=== PATIENT | female | born 1940 | race African-American/Black ===

== ENCOUNTER 2017-07-10 14:10 | Emergency (ER) | payer MEDICARE, MEDICAID ==
[~2017-07-10] VITALS: Ht 157.5 cm; Wt 68.0 kg
[~2017-07-10 14:10] MED LIST: ALEN70TA48 PO; DIPH25CA83 PO; FLUT1DIS3 IH; GABA-531 PO; MISO200T4 PO; OMEP20CA10 PO; PROC5TAB PO; ZOLP5TAB8 PO
[2017-07-10 14:20] VITALS: BP 113/61
== END 2017-07-10 21:35 | disposition left against medical advice (07) ==
LOC: ER 17:37
DX: R07.89 Other chest pain (principal); R05 Cough; Z53.21 Procedure and treatment not carried out due to patient leaving prior to being seen by health care provider
CPT/HCPCS: 93005

== ENCOUNTER 2018-08-11 12:38 | Inpatient (IN) | payer MEDICARE, MEDICAID ==
[~2018-08-11] VITALS: Ht 157.5 cm; Wt 72.1 kg
[~2018-08-11 12:38] MED LIST changes: -PROC5TAB PO; +PROC5TAB12 PO
[2018-08-11] MEDS ORDERED: SODIUM CHLORIDE 0.9% 1,000 ML IV ONE (13:07)
[2018-08-11 13:22] LABS: BASOPHILS % 0.6 % (0.0-2.0); HEMATOCRIT. 26.7 % (36.0-48.0); HEMOGLOBIN. 9.1 g/dL (12.0-16.0); LYMPHOCYTES % 14.9 % (20.0-50.0); MEAN CORPUSCULAR HEMOGLOBIN 31.1 pg (28.0-32.0); MEAN CORPUSCULAR VOLUME 90.9 fL (81.0-99.0); MEAN PLATELET VOLUME 6.7 fl (7.4-10.4); NEUTROPHILS % 74.5 % (40.0-76.0); PLATELET 310 x1000/uL (130-400); RED BLOOD CELL COUNT 2.93 mill/uL (4.2-5.4); RED CELL DISTRIBUTION WIDTH 14.1 % (11.6-14.6)
[2018-08-11 13:27] LABS: CHLORIDE 102 mEq/L (98-107)
[2018-08-11 13:31] LABS: PROTHROMBIN TIME 10.7 sec (9.6-11.0)
[2018-08-11] MEDS ORDERED: CEFTRIAXONE 1 G PREMIX 50 ML IV ONE (18:15)
[2018-08-11] MEDS ORDERED: AZITHROMYCIN 500 MG in DEXT 5% WATER 250 ML IV ONE (18:15)
[2018-08-11] MEDS ORDERED: MORPHINE SULFATE 4 MG/ML CPJ (NOT FOR IM USE) IV PRN ×2 (18:45→23:00)
[2018-08-11 21:40] VITALS: BP 135/82
[2018-08-11] MEDS ORDERED: ACETAMINOPHEN 650MG/20.3ML UDC PO PRN (23:00)
[2018-08-11] MEDS: HYDROCODONE/ACETAMINOPHEN 5/325MG TABLET PO PRN (23:42)
[2018-08-12] VITALS: BP 132/57
[2018-08-12] MEDS ORDERED: LEVOFLOXACIN 500MG PREMIX 100 ML IV SCH ×2
[2018-08-12] MEDS ORDERED: CHLORHEXIDINE GLUCONATE 4% EXTERNAL USE TOP NR (01:00)
[2018-08-12 04:00] VITALS: BP 120/50
[2018-08-12] MEDS: IPRATROPIUM/ALBUTEROL 0.5-3(2.5)MG/3ML NEB HHN SCH ×2 (04:59→20:27)
[2018-08-12] MEDS: HYDROCODONE/ACETAMINOPHEN 5/325MG TABLET PO PRN (05:03)
[2018-08-12] MEDS ORDERED: ONDANSETRON HCL 4MG/2ML INJ IV PRN ×2 (05:15→15:30)
[2018-08-12 06:20] LABS: BASOPHILS % 0.3 % (0.0-2.0); EOSINOPHILS % 0.1 % (0.0-5.0); HEMATOCRIT. 24.2 % (36.0-48.0); HEMOGLOBIN. 8.1 g/dL (12.0-16.0); LYMPHOCYTES % 8.7 % (20.0-50.0); MEAN PLATELET VOLUME 6.8 fl (7.4-10.4); MONOCYTES % 8.1 % (2.0-8.0); NEUTROPHILS % 82.8 % (40.0-76.0); PLATELET 228 x1000/uL (130-400); RED BLOOD CELL COUNT 2.63 mill/uL (4.2-5.4); RED CELL DISTRIBUTION WIDTH 14.2 % (11.6-14.6)
[2018-08-12 06:40] LABS: CHLORIDE 103 mEq/L (98-107)
[2018-08-12] MEDS ORDERED: MORPHINE SULFATE/PF 1MG/ML 10ML AMP ONE (07:11)
[2018-08-12] MEDS ORDERED: SKIN ADHESIVE 0.7 GM EA TOP ONE (07:12)
[2018-08-12] MEDS ORDERED: BACITRACIN 15GM TUBE TOP ONE (07:12)
[2018-08-12] MEDS ORDERED: EPINEPHRINE 1:1000 1 MG/ML AMP ONE (07:12)
[2018-08-12] MEDS ORDERED: GENTAMICIN SULF 40MG/ML 2ML VIAL ONE (07:12)
[2018-08-12] MEDS ORDERED: NORMAL SALINE 0.9% 10 ML SYR ONE ×2 (07:12→13:30)
[2018-08-12] MEDS ORDERED: BACITRACIN 50,000 UNITS/VIAL ONE ×2 (07:13→13:31)
[2018-08-12] MEDS ORDERED: BUPIVACAINE HCL/EPINEPHRINE 0.5%/0.0005 30ML ONE (07:13)
[2018-08-12] MEDS ORDERED: TRANEXAMIC ACID 1,000 MG/10 ML IV STA (07:53)
[2018-08-12] MEDS ORDERED: ROCURONIUM BROMIDE 10MG/ML VIAL 5ML IV ONE (08:09)
[2018-08-12] MEDS ORDERED: EPHEDRINE SULFATE 50MG/ML VIAL ONE (08:10)
[2018-08-12] MEDS ORDERED: PHENYLEPHRINE HCL 10 MG/ML 1ML (IV VIAL) IV ONE ×2 (08:11→13:00)
[2018-08-12] MEDS ORDERED: SODIUM CHLORIDE 0.9% 10ML VIAL ONE ×2 (08:11→08:58)
[2018-08-12] MEDS ORDERED: FENTANYL CITRATE/PF 50MCG/ML 2ML VIAL ONE (08:15)
[2018-08-12] MEDS ORDERED: TRANEXAMIC ACID 1,000 MG in SODIUM CHLORIDE 0.9% 100 ML IV NR (08:15)
[2018-08-12] MEDS ORDERED: MIDAZOLAM HCL 2 MG/2 ML VIAL ONE (08:15)
[2018-08-12] MEDS ORDERED: DEXAMETHASONE 4MG/ML 1ML VIAL ONE (09:09)
[2018-08-12] MEDS ORDERED: CEFAZOLIN SODIUM 1000MG/VIAL ONE (09:29)
[2018-08-12] MEDS ORDERED: VANCOMYCIN HCL 500 MG/VIAL ONE ×2 (11:17→13:07)
[2018-08-12] MEDS ORDERED: ONDANSETRON HCL 4MG/2ML INJ ONE (15:07)
[2018-08-12] MEDS ORDERED: MAGNESIUM HYDROXIDE 400MG/5ML 30ML UDC PO PRN (15:30)
[2018-08-12] MEDS ORDERED: ACETAMINOPHEN 325MG TABLET PO PRN (15:30)
[2018-08-12] MEDS ORDERED: MORPHINE PCA 50MG/50ML IV PRN (16:05)
[2018-08-12] MEDS ORDERED: NALOXONE INJ IV PRN (16:06)
[2018-08-12] MEDS ORDERED: ONDANSETRON INJ IV PRN (16:06)
[2018-08-12] MEDS: DEXT 5%/0.45% NACL 1000ML 1,000 ML IV SCH (19:33)
[2018-08-12 20:00] VITALS: BP 136/66
[2018-08-12] MEDS: LEVOFLOXACIN 250MG PREMIX 50 ML IV SCH (20:33)
[2018-08-12] MEDS: CEFAZOLIN 2,000 MG in DEXT 5% WATER 100 ML IV SCH (23:48)
[2018-08-13] VITALS (7 sets, daily range): BP systolic 90–100; BP diastolic 45–69
[2018-08-13] MEDS: IPRATROPIUM/ALBUTEROL 0.5-3(2.5)MG/3ML NEB HHN SCH ×4 (01:22→21:18)
[2018-08-13] MEDS: DEXT 5%/0.45% NACL 1000ML 1,000 ML IV SCH (04:35)
[2018-08-13] MEDS ORDERED: SODIUM CHLORIDE 0.9% 500 ML IV ONE (07:15)
[2018-08-13 07:39] LABS: HEMATOCRIT. 29.7 % (36.0-48.0); HEMOGLOBIN. 10.3 g/dL (12.0-16.0); MEAN CORPUSCULAR HEMOGLOBIN 30.4 pg (28.0-32.0); MEAN CORPUSCULAR VOLUME 87.6 fL (81.0-99.0); MEAN PLATELET VOLUME 6.7 fl (7.4-10.4); PLATELET 182 x1000/uL (130-400); RED BLOOD CELL COUNT 3.39 mill/uL (4.2-5.4); RED CELL DISTRIBUTION WIDTH 15.9 % (11.6-14.6)
[2018-08-13 08:17] LABS: CHLORIDE 103 mEq/L (98-107)
[2018-08-13] MEDS: DOCUSATE SODIUM 100MG CAPSULE PO SCH ×2 (08:21→17:18)
[2018-08-13] MEDS: ENOXAPARIN 40MG/0.4ML SYR SUBCUT SCH (08:22)
[2018-08-13] MEDS: HYDROCODONE/ACETAMINOPHEN 5/325MG TABLET PO PRN ×3 (10:39→21:39)
[2018-08-13 11:44] LABS: PLATELET ESTIMATE NORMAL
[2018-08-13] MEDS: LEVOFLOXACIN 250MG PREMIX 50 ML IV SCH (20:20)
[2018-08-13] MEDS: CEFAZOLIN 2,000 MG in DEXT 5% WATER 100 ML IV SCH (20:32)
[2018-08-14] VITALS (7 sets, daily range): BP systolic 99–135; BP diastolic 39–65
[2018-08-14] MEDS: IPRATROPIUM/ALBUTEROL 0.5-3(2.5)MG/3ML NEB HHN SCH ×6 (01:25→19:54)
[2018-08-14] MEDS: HYDROCODONE/ACETAMINOPHEN 5/325MG TABLET PO PRN ×4 (03:21→22:02)
[2018-08-14] MEDS: DEXT 5%/0.45% NACL 1000ML 1,000 ML IV SCH ×2 (04:24→20:31)
[2018-08-14 07:24] LABS: BASOPHILS % 0.1 % (0.0-2.0); EOSINOPHILS % 0.2 % (0.0-5.0); HEMOGLOBIN. 9.6 g/dL (12.0-16.0); LYMPHOCYTES % 7.7 % (20.0-50.0); MEAN CORPUSCULAR HEMOGLOBIN 30.3 pg (28.0-32.0); MEAN CORPUSCULAR VOLUME 88.6 fL (81.0-99.0); MONOCYTES % 11.9 % (2.0-8.0); NEUTROPHILS % 80.1 % (40.0-76.0); PLATELET 194 x1000/uL (130-400); RED BLOOD CELL COUNT 3.16 mill/uL (4.2-5.4); RED CELL DISTRIBUTION WIDTH 16.3 % (11.6-14.6)
[2018-08-14 08:17] LABS: CHLORIDE 102 mEq/L (98-107)
[2018-08-14 08:23] LABS: PHOSPHORUS 1.7 mg/dL (2.5-4.9)
[2018-08-14] MEDS: ENOXAPARIN 40MG/0.4ML SYR SUBCUT SCH (09:28)
[2018-08-14] MEDS: DOCUSATE SODIUM 100MG CAPSULE PO SCH ×2 (09:28→18:25)
[2018-08-14] MEDS: LEVOFLOXACIN 250MG PREMIX 50 ML IV SCH (20:30)
[2018-08-15] VITALS: BP 115/57
[2018-08-15] MEDS: DIPHENHYDRAMINE INJ IV PRN ×3 (00:28→15:27)
[2018-08-15] MEDS: IPRATROPIUM/ALBUTEROL 0.5-3(2.5)MG/3ML NEB HHN SCH ×6 (00:46→20:58)
[2018-08-15 04:00] VITALS: BP 136/76
[2018-08-15] MEDS: HYDROCODONE/ACETAMINOPHEN 5/325MG TABLET PO PRN ×3 (04:04→16:50)
[2018-08-15 08:00] VITALS: BP 108/62
[2018-08-15] MEDS: DOCUSATE SODIUM 100MG CAPSULE PO SCH ×2 (08:19→17:06)
[2018-08-15] MEDS: ENOXAPARIN 40MG/0.4ML SYR SUBCUT SCH (08:20)
[2018-08-15 12:00] VITALS: BP 141/65
[2018-08-15 16:00] VITALS: BP 124/68
[2018-08-15] MEDS ORDERED: LACTULOSE 20G/30ML UDC PO SCH ×2 (16:15→17:00)
[2018-08-15] MEDS ORDERED: MAGNESIUM SULFATE 3 GM in DEXT 5% WATER 94 ML IV ONE (19:30)
[2018-08-15 20:08] VITALS: BP 139/68
[2018-08-15] MEDS ORDERED: POTASSIUM PHOS,M-BASIC-D-BASIC 10 MMOL in DEXT 5% WATER 246.6667 ML IV ONE (20:30)
[2018-08-15] MEDS ORDERED: POLYETHYLENE GLYCOL 3350 (17GM) 1 DOSE PACK PO SCH ×2 (21:00)
[2018-08-15] MEDS: LEVOFLOXACIN 250MG PREMIX 50 ML IV SCH (21:31)
== END 2018-08-15 22:12 | DRG 466 ==
LOC: ER 12:38 → 6EST 16:19 → EDBEDREQ 16:22 → EDBEDREQTM 16:22 → EDBEDREQSVC 19:52 → ENRESERV 19:56
PROVIDERS: ADMIT Orthopaedic Surgery; ATTEND Orthopaedic Surgery
PROC: 0SW90JZ Revision of Synthetic Substitute in Right Hip Joint, Open Approach (ICD-10-PCS; principal; 2018-08-12)
PROC: 0QS804Z Reposition Right Femoral Shaft with Internal Fixation Device, Open Approach (ICD-10-PCS; 2018-08-12)
PROC: 30233N1 Transfusion of Nonautologous Red Blood Cells into Peripheral Vein, Percutaneous Approach (ICD-10-PCS; 2018-08-12)
DX: S72.001A Fracture of unspecified part of neck of right femur, initial encounter for closed fracture (principal); J18.1 Lobar pneumonia, unspecified organism; M97.01XA Periprosthetic fracture around internal prosthetic right hip joint, initial encounter; E46 Unspecified protein-calorie malnutrition; E87.1 Hypo-osmolality and hyponatremia; J44.0 Chronic obstructive pulmonary disease with (acute) lower respiratory infection; M81.0 Age-related osteoporosis without current pathological fracture; E53.8 Deficiency of other specified B group vitamins; E66.9 Obesity, unspecified; D64.9 Anemia, unspecified; M54.5 Low back pain; K21.9 Gastro-esophageal reflux disease without esophagitis; E87.8 Other disorders of electrolyte and fluid balance, not elsewhere classified; R73.9 Hyperglycemia, unspecified; R26.9 Unspecified abnormalities of gait and mobility; G89.29 Other chronic pain; M19.90 Unspecified osteoarthritis, unspecified site; W01.0XXA Fall on same level from slipping, tripping and stumbling without subsequent striking against object, initial encounter; Y93.89 Activity, other specified; Y92.89 Other specified places as the place of occurrence of the external cause; Y99.8 Other external cause status; Z88.8 Allergy status to other drugs, medicaments and biological substances; Z91.040 Latex allergy status; Z79.899 Other long term (current) drug therapy; Z68.29 Body mass index [BMI] 29.0-29.9, adult
CPT/HCPCS: 36415; 71045; 72170; 73552; 76000; 80048; 83735; 84100; 86850; 86900; 86920; 93005; 94640; 96365; 97163; 97166; 97530; 97535; 99285; C1713; J0171; J0456; J0690; J0696; J1100; J1200; J1580; J1650; J1956; J2250; J2270; J2274; J2370; J2405; J3010; J3370; J3475; J3490; J7030; J7040; J7050; J7060; J7620; P9016

== ENCOUNTER 2018-08-15 22:07 | Inpatient (IN) | payer MEDICARE, MEDICAID ==
[~2018-08-15] VITALS: Ht 157.5 cm; Wt 72.1 kg
[2018-08-15 22:07] VITALS: BP_SYST 117; BP_DIAS 61; BP_DIAS 64
[2018-08-15] MEDS ORDERED: ACETAMINOPHEN 325MG TABLET PO PRN (23:15)
[2018-08-15] MEDS ORDERED: IPRATROPIUM/ALBUTEROL 0.5-3(2.5)MG/3ML NEB HHN PRN ×2 (23:15)
[2018-08-15] MEDS ORDERED: MAGNESIUM HYDROXIDE 400MG/5ML 30ML UDC PO PRN (23:15)
[2018-08-15] MEDS ORDERED: MAGNESIUM SULFATE 3 GM in DEXT 5% WATER 100 ML IV SCH (23:45)
[2018-08-16] MEDS ORDERED: IPRATROPIUM/ALBUTEROL 0.5-3(2.5)MG/3ML NEB HHN PRN
[2018-08-16] MEDS ORDERED: LACTULOSE 20G/30ML UDC PO SCH
[2018-08-16] MEDS ORDERED: NON FORMULARY PATIENT HOME MED XX SCH
[2018-08-16] MEDS ORDERED: POTASSIUM PHOS,M-BASIC-D-BASIC 10 MMOL in DEXT 5% WATER 250 ML IV SCH (01:00)
[2018-08-16] MEDS ORDERED: LACTULOSE 20G/30ML UDC PO PRN (01:15)
[2018-08-16] MEDS ORDERED: LEVOFLOXACIN 500MG PREMIX 100 ML IV SCH ×2 (02:00→09:00)
[2018-08-16] MEDS: HYDROCODONE/ACETAMINOPHEN 5/325MG TABLET PO PRN ×3 (02:24→16:15)
[2018-08-16 06:23] LABS: BASOPHILS % 0.2 % (0.0-2.0); EOSINOPHILS % 3.7 % (0.0-5.0); HEMATOCRIT. 27.1 % (36.0-48.0); HEMOGLOBIN. 9.3 g/dL (12.0-16.0); LYMPHOCYTES % 12.1 % (20.0-50.0); MEAN CORPUSCULAR HEMOGLOBIN 30.2 pg (28.0-32.0); MEAN CORPUSCULAR VOLUME 88.4 fL (81.0-99.0); MEAN PLATELET VOLUME 6.7 fl (7.4-10.4); MONOCYTES % 8.5 % (2.0-8.0); NEUTROPHILS % 75.5 % (40.0-76.0); PLATELET 249 x1000/uL (130-400); RED BLOOD CELL COUNT 3.06 mill/uL (4.2-5.4)
[2018-08-16 06:51] LABS: CHLORIDE 102 mEq/L (98-107)
[2018-08-16 08:00] VITALS: BP 124/58
[2018-08-16] MEDS: ENOXAPARIN 40MG/0.4ML SYR SUBCUT SCH (08:45)
[2018-08-16] MEDS: POLYETHYLENE GLYCOL 3350 (17GM) 1 DOSE PACK PO SCH (08:45)
[2018-08-16] MEDS: DIPHENHYDRAMINE 25MG CAPSULE PO PRN (08:47)
[2018-08-16] MEDS ORDERED: DOCUSATE SODIUM 100MG CAPSULE PO SCH (09:00)
[2018-08-16] MEDS ORDERED: BISACODYL 10MG SUPP PR PRN (12:15)
[2018-08-16] MEDS: LACTULOSE 20G/30ML UDC PO SCH ×3 (13:13→22:09)
[2018-08-16] MEDS: DOCUSATE SODIUM 100MG CAPSULE PO SCH (16:15)
[2018-08-16 20:00] VITALS: BP 113/60
[2018-08-16] MEDS: LEVOFLOXACIN 250MG PREMIX 50 ML IV SCH (21:00)
[2018-08-17] MEDS: HYDROCODONE/ACETAMINOPHEN 5/325MG TABLET PO PRN ×4 (03:39→21:23)
[2018-08-17] MEDS: PANTOPRAZOLE 40MG DR TABLET PO SCH (07:04)
[2018-08-17 08:00] VITALS: BP 103/48
[2018-08-17] MEDS ORDERED: NA PHOS,M-B/NA PHOS,DI-BA ENEMA 118ML PR SCH (08:33)
[2018-08-17] MEDS ORDERED: LACTULOSE 20G/30ML UDC PO SCH (09:00)
[2018-08-17] MEDS: ENOXAPARIN 40MG/0.4ML SYR SUBCUT SCH (09:25)
[2018-08-17] MEDS: POLYETHYLENE GLYCOL 3350 (17GM) 1 DOSE PACK PO SCH (09:26)
[2018-08-17] MEDS: DOCUSATE SODIUM 100MG CAPSULE PO SCH ×2 (09:26→16:44)
[2018-08-17] MEDS: DIPHENHYDRAMINE 25MG CAPSULE PO PRN (12:06)
[2018-08-17 13:42] LABS: CLARITY URINE CLEAR (CLEAR); COLOR URINE YELLOW (YELLOW); KETONES URINE NEGATIVE (NEGATIVE); LEUKOCYTE ESTERASE URINE NEGATIVE (NEGATIVE); NITRITE URINE NEGATIVE (NEGATIVE); OCCULT BLOOD URINE NEGATIVE (NEGATIVE); PH URINE 7.5 (4.5-8.0); PROTEIN URINE NEGATIVE (NEGATIVE); SPECIFIC GRAVITY URINE 1.005 (1.005-1.030); UROBILINOGEN URINE 0.2 E.U./dL (0.2-1.0)
[2018-08-17 20:00] VITALS: BP 128/61
[2018-08-17] MEDS: LEVOFLOXACIN 250MG PREMIX 50 ML IV SCH (23:55)
[2018-08-18] MEDS: HYDROCODONE/ACETAMINOPHEN 5/325MG TABLET PO PRN ×5 (01:37→22:44)
[2018-08-18] MEDS: PANTOPRAZOLE 40MG DR TABLET PO SCH (06:01)
[2018-08-18 06:32] LABS: HEMATOCRIT. 27.7 % (36.0-48.0); HEMOGLOBIN. 9.2 g/dL (12.0-16.0); MEAN CORPUSCULAR HEMOGLOBIN 29.8 pg (28.0-32.0); MEAN CORPUSCULAR VOLUME 89.5 fL (81.0-99.0); MEAN PLATELET VOLUME 6.8 fl (7.4-10.4); PLATELET 298 x1000/uL (130-400); RED CELL DISTRIBUTION WIDTH 15.4 % (11.6-14.6)
[2018-08-18 06:59] LABS: CHLORIDE 98 mEq/L (98-107)
[2018-08-18 07:09] LABS: LDL CHOLESTEROL 94 mg/dL (5-100)
[2018-08-18 07:10] LABS: FOLIC ACID (FOLATE) SERUM >20 ng/mL ng/mL (>5.38)
[2018-08-18 07:11] LABS: FERRITIN 151 ng/mL (10-291); HDL CHOLESTEROL 37 mg/dL (40-59)
[2018-08-18 07:13] LABS: PHOSPHORUS 2.7 mg/dL (2.5-4.9)
[2018-08-18 07:17] LABS: TOTAL IRON BINDING CAPACITY 184 ug/dL (250-450)
[2018-08-18 07:23] LABS: VITAMIN B12 SERUM 1906 pg/mL (211-911)
[2018-08-18 07:54] LABS: PLATELET ESTIMATE NORMAL
[2018-08-18 07:57] VITALS: BP 110/54
[2018-08-18] MEDS: DOCUSATE SODIUM 100MG CAPSULE PO SCH ×2 (08:39→17:00)
[2018-08-18] MEDS: POLYETHYLENE GLYCOL 3350 (17GM) 1 DOSE PACK PO SCH (08:39)
[2018-08-18] MEDS: ENOXAPARIN 40MG/0.4ML SYR SUBCUT SCH (08:40)
[2018-08-18] MEDS ORDERED: MAGNESIUM 2 G PREMIX 50 ML IV NR ×2 (14:30→16:30)
[2018-08-18] MEDS: ONDANSETRON HCL 4MG/2ML INJ IV PRN (15:47)
[2018-08-18] MEDS: LACTULOSE 20G/30ML UDC PO SCH (17:00)
[2018-08-18 20:00] VITALS: BP 137/65
[2018-08-18] MEDS ORDERED: LEVOFLOXACIN 250MG PREMIX 50 ML IV SCH (22:00)
[2018-08-19] MEDS: PANTOPRAZOLE 40MG DR TABLET PO SCH (05:55)
[2018-08-19] MEDS: HYDROCODONE/ACETAMINOPHEN 5/325MG TABLET PO PRN ×4 (06:03→20:59)
[2018-08-19 08:46] VITALS: BP 115/54
[2018-08-19] MEDS: LACTULOSE 20G/30ML UDC PO SCH ×2 (11:27→17:14)
[2018-08-19] MEDS: ENOXAPARIN 40MG/0.4ML SYR SUBCUT SCH (11:28)
[2018-08-19] MEDS: DOCUSATE SODIUM 100MG CAPSULE PO SCH ×2 (11:28→17:14)
[2018-08-19] MEDS: POLYETHYLENE GLYCOL 3350 (17GM) 1 DOSE PACK PO SCH (11:30)
[2018-08-19 20:00] VITALS: BP 115/65
[2018-08-20 01:37] LABS: CLARITY URINE CLEAR (CLEAR); COLOR URINE YELLOW (YELLOW); KETONES URINE NEGATIVE (NEGATIVE); LEUKOCYTE ESTERASE URINE NEGATIVE (NEGATIVE); NITRITE URINE NEGATIVE (NEGATIVE); OCCULT BLOOD URINE NEGATIVE (NEGATIVE); PROTEIN URINE NEGATIVE (NEGATIVE); SPECIFIC GRAVITY URINE 1.006 (1.005-1.030)
[2018-08-20] MEDS: HYDROCODONE/ACETAMINOPHEN 5/325MG TABLET PO PRN ×4 (03:27→21:58)
[2018-08-20 06:37] LABS: HEMATOCRIT. 26.7 % (36.0-48.0); MEAN CORPUSCULAR VOLUME 89.1 fL (81.0-99.0); MEAN PLATELET VOLUME 6.8 fl (7.4-10.4); PLATELET 366 x1000/uL (130-400); RED CELL DISTRIBUTION WIDTH 15.3 % (11.6-14.6)
[2018-08-20 07:33] LABS: CHLORIDE 96 mEq/L (98-107)
[2018-08-20 07:42] LABS: PHOSPHORUS 2.9 mg/dL (2.5-4.9)
[2018-08-20] MEDS ORDERED: FAMOTIDINE 20MG TABLET PO SCH (09:00)
[2018-08-20 09:16] VITALS: BP 130/60
[2018-08-20] MEDS: DOCUSATE SODIUM 100MG CAPSULE PO SCH ×2 (09:20→17:38)
[2018-08-20] MEDS: LACTULOSE 20G/30ML UDC PO SCH ×2 (09:20→16:28)
[2018-08-20] MEDS: POLYETHYLENE GLYCOL 3350 (17GM) 1 DOSE PACK PO SCH (09:20)
[2018-08-20] MEDS: ENOXAPARIN 40MG/0.4ML SYR SUBCUT SCH (09:23)
[2018-08-20 09:37] LABS: PLATELET ESTIMATE NORMAL
[2018-08-20] MEDS: MAGNESIUM OXIDE 400MG TABLET PO SCH ×2 (12:06→21:57)
[2018-08-20 20:00] VITALS: BP 123/49
[2018-08-21] MEDS ORDERED: HYDROCODONE/ACETAMINOPHEN 5/325MG TABLET PO PRN ×2 (05:45→10:15)
[2018-08-21 07:51] LABS: CHLORIDE 99 mEq/L (98-107)
[2018-08-21 08:02] VITALS: BP 135/65
[2018-08-21] MEDS: LACTULOSE 20G/30ML UDC PO SCH ×2 (08:43→17:39)
[2018-08-21] MEDS: POLYETHYLENE GLYCOL 3350 (17GM) 1 DOSE PACK PO SCH (08:43)
[2018-08-21] MEDS: FAMOTIDINE 20MG TABLET PO SCH (08:44)
[2018-08-21] MEDS: MAGNESIUM OXIDE 400MG TABLET PO SCH ×2 (08:44→21:04)
[2018-08-21] MEDS: ENOXAPARIN 40MG/0.4ML SYR SUBCUT SCH (08:44)
[2018-08-21] MEDS: DOCUSATE SODIUM 100MG CAPSULE PO SCH ×2 (08:44→17:39)
[2018-08-21] MEDS: ONDANSETRON HCL 4MG/2ML INJ IV PRN (09:51)
[2018-08-21] MEDS: OXYCODONE HCL 5MG TABLET PO SCH (17:38)
[2018-08-21 20:00] VITALS: BP 114/50
[2018-08-22] MEDS: HYDROCODONE/ACETAMINOPHEN 5/325MG TABLET PO PRN (03:14)
[2018-08-22 06:17] LABS: BASOPHILS % 0.4 % (0.0-2.0); EOSINOPHILS % 3.9 % (0.0-5.0); HEMATOCRIT. 27.6 % (36.0-48.0); HEMOGLOBIN. 9.4 g/dL (12.0-16.0); LYMPHOCYTES % 14.9 % (20.0-50.0); MEAN CORPUSCULAR HEMOGLOBIN 30.5 pg (28.0-32.0); MEAN CORPUSCULAR VOLUME 89.4 fL (81.0-99.0); MEAN PLATELET VOLUME 6.5 fl (7.4-10.4); MONOCYTES % 10.4 % (2.0-8.0); NEUTROPHILS % 70.4 % (40.0-76.0); PLATELET 469 x1000/uL (130-400); RED BLOOD CELL COUNT 3.08 mill/uL (4.2-5.4); RED CELL DISTRIBUTION WIDTH 15.5 % (11.6-14.6)
[2018-08-22 07:35] LABS: CHLORIDE 96 mEq/L (98-107)
[2018-08-22 08:15] VITALS: BP 136/57
[2018-08-22] MEDS: LACTULOSE 20G/30ML UDC PO SCH ×2 (09:23→16:14)
[2018-08-22] MEDS: POLYETHYLENE GLYCOL 3350 (17GM) 1 DOSE PACK PO SCH (09:23)
[2018-08-22] MEDS: MAGNESIUM OXIDE 400MG TABLET PO SCH ×2 (09:23→21:23)
[2018-08-22] MEDS: DOCUSATE SODIUM 100MG CAPSULE PO SCH ×2 (09:23→16:14)
[2018-08-22] MEDS: OXYCODONE HCL 5MG TABLET PO SCH ×3 (09:23→16:13)
[2018-08-22] MEDS: FAMOTIDINE 20MG TABLET PO SCH (09:23)
[2018-08-22] MEDS: ENOXAPARIN 40MG/0.4ML SYR SUBCUT SCH (09:24)
[2018-08-22] MEDS: ONDANSETRON HCL 4MG/2ML INJ IV PRN (10:00)
[2018-08-22] MEDS: DIPHENHYDRAMINE 25MG CAPSULE PO PRN (13:58)
[2018-08-22 20:00] VITALS: BP_SYST 111; BP_SYST 165; BP_DIAS 57; BP_DIAS 67
[2018-08-23] MEDS: GABAPENTIN 100MG CAPSULE PO SCH ×4 (01:43→21:09)
[2018-08-23] MEDS: HYDROCODONE/ACETAMINOPHEN 5/325MG TABLET PO PRN (01:44)
[2018-08-23 08:33] VITALS: BP_SYST 116; BP_SYST 170; BP_DIAS 51; BP_DIAS 62
[2018-08-23] MEDS: POLYETHYLENE GLYCOL 3350 (17GM) 1 DOSE PACK PO SCH (09:00)
[2018-08-23] MEDS: DOCUSATE SODIUM 100MG CAPSULE PO SCH ×2 (09:05→17:31)
[2018-08-23] MEDS: MAGNESIUM OXIDE 400MG TABLET PO SCH ×2 (09:05→21:09)
[2018-08-23] MEDS: LACTULOSE 20G/30ML UDC PO SCH ×2 (09:05→17:31)
[2018-08-23] MEDS: FAMOTIDINE 20MG TABLET PO SCH (09:05)
[2018-08-23] MEDS: ENOXAPARIN 40MG/0.4ML SYR SUBCUT SCH (09:07)
[2018-08-23] MEDS: OXYCODONE HCL 5MG TABLET PO SCH ×3 (10:41→17:31)
[2018-08-23 20:00] VITALS: BP 120/66
[2018-08-23] MEDS: DIPHENHYDRAMINE 25MG CAPSULE PO PRN (21:42)
[2018-08-24 04:13] LABS: 25-HYDROXY VITAMIN D3 32 ng/mL (.)
[2018-08-24] MEDS: GABAPENTIN 100MG CAPSULE PO SCH ×3 (05:38→21:56)
[2018-08-24] MEDS: HYDROCODONE/ACETAMINOPHEN 5/325MG TABLET PO PRN (05:38)
[2018-08-24 06:49] LABS: BASOPHILS % 0.5 % (0.0-2.0); EOSINOPHILS % 3.8 % (0.0-5.0); HEMATOCRIT. 29.7 % (36.0-48.0); MEAN CORPUSCULAR HEMOGLOBIN 30.2 pg (28.0-32.0); MEAN CORPUSCULAR VOLUME 90.1 fL (81.0-99.0); MONOCYTES % 9.2 % (2.0-8.0); NEUTROPHILS % 72.5 % (40.0-76.0); RED CELL DISTRIBUTION WIDTH 15.7 % (11.6-14.6)
[2018-08-24 06:54] LABS: CHLORIDE 98 mEq/L (98-107)
[2018-08-24 08:54] VITALS: BP 101/41
[2018-08-24] MEDS: POLYETHYLENE GLYCOL 3350 (17GM) 1 DOSE PACK PO SCH (08:55)
[2018-08-24] MEDS: LACTULOSE 20G/30ML UDC PO SCH ×2 (08:55→16:55)
[2018-08-24] MEDS: ENOXAPARIN 40MG/0.4ML SYR SUBCUT SCH (08:55)
[2018-08-24] MEDS: DOCUSATE SODIUM 100MG CAPSULE PO SCH ×2 (08:55→16:55)
[2018-08-24] MEDS: FAMOTIDINE 20MG TABLET PO SCH (08:55)
[2018-08-24] MEDS: MAGNESIUM OXIDE 400MG TABLET PO SCH (08:55)
[2018-08-24] MEDS: OXYCODONE HCL 5MG TABLET PO SCH ×3 (08:56→16:56)
[2018-08-24 09:17] LABS: PLATELET 480 x1000/uL (130-400)
[2018-08-24 20:00] VITALS: BP 117/60
[2018-08-25] MEDS: HYDROCODONE/ACETAMINOPHEN 5/325MG TABLET PO PRN ×2 (03:45→16:17)
[2018-08-25] MEDS: GABAPENTIN 100MG CAPSULE PO SCH ×3 (06:29→20:22)
[2018-08-25 07:19] LABS: BASOPHILS % 0.4 % (0.0-2.0); EOSINOPHILS % 3.8 % (0.0-5.0); HEMATOCRIT. 29.6 % (36.0-48.0); HEMOGLOBIN. 9.9 g/dL (12.0-16.0); LYMPHOCYTES % 12.8 % (20.0-50.0); MEAN CORPUSCULAR HEMOGLOBIN 29.8 pg (28.0-32.0); MEAN CORPUSCULAR VOLUME 89.8 fL (81.0-99.0); MEAN PLATELET VOLUME 6.6 fl (7.4-10.4); MONOCYTES % 8.2 % (2.0-8.0); NEUTROPHILS % 74.8 % (40.0-76.0); PLATELET 596 x1000/uL (130-400); RED CELL DISTRIBUTION WIDTH 16.1 % (11.6-14.6)
[2018-08-25 07:54] LABS: CHLORIDE 97 mEq/L (98-107)
[2018-08-25 08:00] VITALS: BP 109/50
[2018-08-25] MEDS: LACTULOSE 20G/30ML UDC PO SCH ×5 (08:55→20:25)
[2018-08-25] MEDS: POLYETHYLENE GLYCOL 3350 (17GM) 1 DOSE PACK PO SCH (08:56)
[2018-08-25] MEDS: OXYCODONE HCL 5MG TABLET PO SCH ×3 (08:56→18:51)
[2018-08-25] MEDS: DOCUSATE SODIUM 100MG CAPSULE PO SCH ×2 (08:56→16:20)
[2018-08-25] MEDS: FAMOTIDINE 20MG TABLET PO SCH (08:56)
[2018-08-25] MEDS: ENOXAPARIN 40MG/0.4ML SYR SUBCUT SCH (08:57)
[2018-08-25 20:00] VITALS: BP 111/51
[2018-08-26] MEDS: HYDROCODONE/ACETAMINOPHEN 5/325MG TABLET PO PRN ×2 (02:57→20:27)
[2018-08-26] MEDS: GABAPENTIN 100MG CAPSULE PO SCH ×3 (05:22→20:25)
[2018-08-26 07:23] LABS: CHLORIDE 98 mEq/L (98-107)
[2018-08-26 08:00] VITALS: BP 99/42
[2018-08-26] MEDS: OXYCODONE HCL 5MG TABLET PO SCH ×3 (09:00→17:00)
[2018-08-26] MEDS ORDERED: ERGOCALCIFEROL 50000UNITS CAPSULE PO SCH (10:30)
[2018-08-26] MEDS: FAMOTIDINE 20MG TABLET PO SCH (10:31)
[2018-08-26] MEDS: LACTULOSE 20G/30ML UDC PO SCH ×2 (10:32→17:00)
[2018-08-26] MEDS: POLYETHYLENE GLYCOL 3350 (17GM) 1 DOSE PACK PO SCH (10:32)
[2018-08-26] MEDS: DOCUSATE SODIUM 100MG CAPSULE PO SCH ×2 (10:32→17:00)
[2018-08-26] MEDS: ENOXAPARIN 40MG/0.4ML SYR SUBCUT SCH (10:33)
[2018-08-26 20:00] VITALS: BP 122/58
[2018-08-26] MEDS ORDERED: HYDROCODONE/ACETAMINOPHEN 5/325MG TABLET PO PRN (20:00)
[2018-08-27] MEDS: DIPHENHYDRAMINE 25MG CAPSULE PO PRN (00:16)
[2018-08-27] MEDS: HYDROCODONE/ACETAMINOPHEN 5/325MG TABLET PO PRN (04:06)
[2018-08-27] MEDS: GABAPENTIN 100MG CAPSULE PO SCH ×3 (06:26→20:57)
[2018-08-27] MEDS ORDERED: CELECOXIB 200MG CAPSULE PO SCH (07:45)
[2018-08-27 08:00] VITALS: BP 129/63
[2018-08-27] MEDS: POLYETHYLENE GLYCOL 3350 (17GM) 1 DOSE PACK PO SCH (09:00)
[2018-08-27] MEDS: DOCUSATE SODIUM 100MG CAPSULE PO SCH ×2 (09:18→17:00)
[2018-08-27] MEDS: FAMOTIDINE 20MG TABLET PO SCH (09:18)
[2018-08-27] MEDS: LACTULOSE 20G/30ML UDC PO SCH ×2 (09:19→17:00)
[2018-08-27] MEDS: ENOXAPARIN 40MG/0.4ML SYR SUBCUT SCH (09:19)
[2018-08-27] MEDS: CELECOXIB 100MG CAPSULE PO SCH (17:16)
[2018-08-27 20:00] VITALS: BP 124/53
[2018-08-28] MEDS: GABAPENTIN 100MG CAPSULE PO SCH ×3 (05:48→21:17)
[2018-08-28] MEDS: HYDROCODONE/ACETAMINOPHEN 5/325MG TABLET PO PRN (05:55)
[2018-08-28 06:41] LABS: BASOPHILS % 0.7 % (0.0-2.0); EOSINOPHILS % 3.3 % (0.0-5.0); HEMOGLOBIN. 10.3 g/dL (12.0-16.0); MEAN CORPUSCULAR HEMOGLOBIN 30.8 pg (28.0-32.0); MEAN CORPUSCULAR VOLUME 89.9 fL (81.0-99.0); MEAN PLATELET VOLUME 6.6 fl (7.4-10.4); MONOCYTES % 9.2 % (2.0-8.0); NEUTROPHILS % 74.8 % (40.0-76.0); PLATELET 595 x1000/uL (130-400); RED BLOOD CELL COUNT 3.33 mill/uL (4.2-5.4); RED CELL DISTRIBUTION WIDTH 15.8 % (11.6-14.6)
[2018-08-28 08:00] VITALS: BP 153/92
[2018-08-28 08:02] LABS: CHLORIDE 102 mEq/L (98-107)
[2018-08-28 08:09] LABS: PHOSPHORUS 3.5 mg/dL (2.5-4.9)
[2018-08-28] MEDS: FAMOTIDINE 20MG TABLET PO SCH (10:07)
[2018-08-28] MEDS: CELECOXIB 100MG CAPSULE PO SCH ×2 (10:07→16:07)
[2018-08-28] MEDS: LACTULOSE 20G/30ML UDC PO SCH ×2 (10:08→17:54)
[2018-08-28] MEDS: DOCUSATE SODIUM 100MG CAPSULE PO SCH ×2 (10:08→17:54)
[2018-08-28] MEDS: ENOXAPARIN 40MG/0.4ML SYR SUBCUT SCH (10:09)
[2018-08-28] MEDS: POLYETHYLENE GLYCOL 3350 (17GM) 1 DOSE PACK PO SCH (10:09)
[2018-08-28] MEDS: DIPHENHYDRAMINE 25MG CAPSULE PO PRN (14:23)
[2018-08-28 20:00] VITALS: BP 107/49
[2018-08-29] MEDS: HYDROCODONE/ACETAMINOPHEN 5/325MG TABLET PO PRN ×2 (04:05→12:47)
[2018-08-29] MEDS: GABAPENTIN 100MG CAPSULE PO SCH ×3 (06:05→21:20)
[2018-08-29 08:00] VITALS: BP_SYST 120; BP_SYST 166; BP_DIAS 57
[2018-08-29] MEDS: DOCUSATE SODIUM 100MG CAPSULE PO SCH ×2 (08:24→17:17)
[2018-08-29] MEDS: LACTULOSE 20G/30ML UDC PO SCH ×2 (08:24→17:18)
[2018-08-29] MEDS: FAMOTIDINE 20MG TABLET PO SCH (08:24)
[2018-08-29] MEDS: ENOXAPARIN 40MG/0.4ML SYR SUBCUT SCH (08:24)
[2018-08-29] MEDS: POLYETHYLENE GLYCOL 3350 (17GM) 1 DOSE PACK PO SCH (08:24)
[2018-08-29] MEDS: CELECOXIB 100MG CAPSULE PO SCH ×2 (08:24→17:17)
[2018-08-29 20:00] VITALS: BP 110/50
[2018-08-29 20:21] VITALS: BP 110/50
[2018-08-29] MEDS: DIPHENHYDRAMINE 25MG CAPSULE PO PRN (21:20)
[2018-08-30] MEDS: GABAPENTIN 100MG CAPSULE PO SCH ×3 (05:45→21:49)
[2018-08-30 06:15] LABS: CHLORIDE 103 mEq/L (98-107)
[2018-08-30 06:31] LABS: BASOPHILS % 0.7 % (0.0-2.0); EOSINOPHILS % 6.4 % (0.0-5.0); HEMATOCRIT. 29.3 % (36.0-48.0); HEMOGLOBIN. 9.8 g/dL (12.0-16.0); LYMPHOCYTES % 20.1 % (20.0-50.0); MEAN CORPUSCULAR HEMOGLOBIN 30.3 pg (28.0-32.0); MEAN CORPUSCULAR VOLUME 90.5 fL (81.0-99.0); MEAN PLATELET VOLUME 6.7 fl (7.4-10.4); MONOCYTES % 13.5 % (2.0-8.0); NEUTROPHILS % 59.3 % (40.0-76.0); PLATELET 487 x1000/uL (130-400); RED BLOOD CELL COUNT 3.24 mill/uL (4.2-5.4); RED CELL DISTRIBUTION WIDTH 15.7 % (11.6-14.6)
[2018-08-30 08:50] VITALS: BP 121/46
[2018-08-30] MEDS: FAMOTIDINE 20MG TABLET PO SCH (08:56)
[2018-08-30] MEDS: LACTULOSE 20G/30ML UDC PO SCH ×2 (08:56→16:49)
[2018-08-30] MEDS: DOCUSATE SODIUM 100MG CAPSULE PO SCH ×2 (08:56→16:44)
[2018-08-30] MEDS: POLYETHYLENE GLYCOL 3350 (17GM) 1 DOSE PACK PO SCH (08:56)
[2018-08-30] MEDS: ENOXAPARIN 40MG/0.4ML SYR SUBCUT SCH (08:56)
[2018-08-30] MEDS: CELECOXIB 100MG CAPSULE PO SCH ×2 (08:57→16:44)
[2018-08-30] MEDS: HYDROCODONE/ACETAMINOPHEN 5/325MG TABLET PO PRN (14:42)
[2018-08-30] MEDS: DIPHENHYDRAMINE 25MG CAPSULE PO PRN (18:50)
[2018-08-30 20:00] VITALS: BP 106/57
[2018-08-31] MEDS: GABAPENTIN 100MG CAPSULE PO SCH ×2 (05:48→13:07)
[2018-08-31 08:33] VITALS: BP 110/43
[2018-08-31] MEDS: CELECOXIB 100MG CAPSULE PO SCH (08:33)
[2018-08-31] MEDS: DOCUSATE SODIUM 100MG CAPSULE PO SCH (08:33)
[2018-08-31] MEDS: ENOXAPARIN 40MG/0.4ML SYR SUBCUT SCH (08:33)
[2018-08-31] MEDS: LACTULOSE 20G/30ML UDC PO SCH (08:33)
[2018-08-31] MEDS: FAMOTIDINE 20MG TABLET PO SCH (08:33)
[2018-08-31] MEDS: POLYETHYLENE GLYCOL 3350 (17GM) 1 DOSE PACK PO SCH (08:33)
[2018-08-31 10:27] VITALS: BP 110/43
== END 2018-08-31 14:50 | DRG 535 ==
PROVIDERS: ADMIT Physical Medicine & Rehabilitation Spinal Cord Injury Medicine; ATTEND Internal Medicine
DX: S72.101A Unspecified trochanteric fracture of right femur, initial encounter for closed fracture (principal); J18.9 Pneumonia, unspecified organism; J44.0 Chronic obstructive pulmonary disease with (acute) lower respiratory infection; E46 Unspecified protein-calorie malnutrition; E87.1 Hypo-osmolality and hyponatremia; M97.01XA Periprosthetic fracture around internal prosthetic right hip joint, initial encounter; F11.20 Opioid dependence, uncomplicated; J98.11 Atelectasis; D64.9 Anemia, unspecified; E87.6 Hypokalemia; I51.7 Cardiomegaly; E88.89 Other specified metabolic disorders; M81.0 Age-related osteoporosis without current pathological fracture; Z96.641 Presence of right artificial hip joint; W18.39XA Other fall on same level, initial encounter; E53.8 Deficiency of other specified B group vitamins; E83.39 Other disorders of phosphorus metabolism; F41.9 Anxiety disorder, unspecified; K59.00 Constipation, unspecified; E53.9 Vitamin B deficiency, unspecified; R73.9 Hyperglycemia, unspecified; Z87.01 Personal history of pneumonia (recurrent); Y93.89 Activity, other specified; Y92.89 Other specified places as the place of occurrence of the external cause; Y99.8 Other external cause status; Z68.29 Body mass index [BMI] 29.0-29.9, adult
CPT/HCPCS: 36415; 73502; 80048; 80061; 82306; 82607; 82728; 82746; 83036; 83540; 83550; 83735; 84100; 84132; 84134; 84443; 85651; 92610; 93970; 97110; 97112; 97116; 97162; 97167; 97530; 97535; A6261; C1893; J1650; J1956; J2405; J3475; J3490; J7040; J7050; J7060; Q0163; A4315

== ENCOUNTER 2018-12-07 14:23 | Emergency (ER) | payer MEDICARE, MEDICAID ==
[~2018-12-07] VITALS: Ht 162.6 cm; Wt 76.0 kg
[2018-12-07 17:37] LABS: HEMATOCRIT. 38.4 % (36.0-48.0); HEMOGLOBIN. 12.9 g/dL (12.0-16.0); MEAN CORPUSCULAR HEMOGLOBIN 31.6 pg (28.0-32.0); MEAN CORPUSCULAR VOLUME 93.7 fL (81.0-99.0); MEAN PLATELET VOLUME 6.7 fl (7.4-10.4); PLATELET 319 x1000/uL (130-400); RED BLOOD CELL COUNT 4.09 mill/uL (4.2-5.4); RED CELL DISTRIBUTION WIDTH 15.1 % (11.6-14.6)
[2018-12-07 17:42] LABS: CHLORIDE 103 mEq/L (98-107)
[2018-12-07 17:59] LABS: PLATELET ESTIMATE NORMAL
[2018-12-07] MEDS ORDERED: FLUCONAZOLE 100MG TABLET PO ONE (20:00)
[2018-12-07 21:15] VITALS: BP 127/80
== END 2018-12-07 21:17 | disposition home or self-care (01) ==
LOC: ER 14:23
DX: B35.3 Tinea pedis (principal); E87.5 Hyperkalemia; Z88.6 Allergy status to analgesic agent; Z88.8 Allergy status to other drugs, medicaments and biological substances; Z91.040 Latex allergy status; Z96.649 Presence of unspecified artificial hip joint
CPT/HCPCS: 36415; 83605; 99283

== ENCOUNTER 2019-02-27 00:07 | Emergency (ER) | payer MEDICARE, MEDICAID ==
[~2019-02-27] VITALS: Ht 157.5 cm; Wt 48.0 kg
[2019-02-27 03:44] VITALS: BP 130/73
== END 2019-02-27 03:52 | disposition home or self-care (01) ==
LOC: ER 00:07
DX: S05.11XA Contusion of eyeball and orbital tissues, right eye, initial encounter (principal); S00.531A Contusion of lip, initial encounter; M25.512 Pain in left shoulder; J44.9 Chronic obstructive pulmonary disease, unspecified; Z91.040 Latex allergy status; Z88.6 Allergy status to analgesic agent; Z88.5 Allergy status to narcotic agent; Z96.649 Presence of unspecified artificial hip joint; Z98.890 Other specified postprocedural states; W18.39XA Other fall on same level, initial encounter; Y93.89 Activity, other specified; Y92.89 Other specified places as the place of occurrence of the external cause; Y99.8 Other external cause status
CPT/HCPCS: 70486; 73030; 99284

== ENCOUNTER 2019-06-12 17:57 | Inpatient (IN) | payer MEDICARE, MEDICAID ==
[~2019-06-12] VITALS: Ht 162.6 cm; Wt 49.9 kg
[2019-06-12 19:11] LABS: BASOPHILS % 0.4 % (0.0-2.0); EOSINOPHILS % 10.1 % (0.0-5.0); HEMATOCRIT. 39.8 % (36.0-48.0); HEMOGLOBIN. 12.9 g/dL (12.0-16.0); MEAN CORPUSCULAR HEMOGLOBIN 31.2 pg (28.0-32.0); MEAN CORPUSCULAR VOLUME 96.5 fL (81.0-99.0); MEAN PLATELET VOLUME 7.5 fl (7.4-10.4); MONOCYTES % 5.9 % (2.0-8.0); NEUTROPHILS % 74.6 % (40.0-76.0); PLATELET 307 x1000/uL (130-400); RED BLOOD CELL COUNT 4.12 mill/uL (4.2-5.4); RED CELL DISTRIBUTION WIDTH 14.7 % (11.6-14.6)
[2019-06-12 19:14] LABS: CHLORIDE 108 mEq/L (98-107)
[2019-06-12] MEDS ORDERED: ALBUTEROL (0.083%) 2.5MG/3ML NEB HHN STA (19:44)
[2019-06-12] MEDS ORDERED: METHYLPREDNISOLONE SOD SUCC 125 MG/2 ML VIAL IV STA (19:44)
[2019-06-12] MEDS ORDERED: POTASSIUM CHLORIDE 20MEQ TABLET SR PO ONE (22:15)
[2019-06-12] MEDS ORDERED: GUAIFENESIN 200MG/10ML SUGAR FREE UDC PO PRN (22:15)
[2019-06-12] MEDS ORDERED: ONDANSETRON HCL 4MG/2ML INJ IV PRN (22:15)
[2019-06-12] MEDS ORDERED: IPRATROPIUM/ALBUTEROL 0.5-3(2.5)MG/3ML NEB HHN PRN (22:15)
[2019-06-12] MEDS ORDERED: DEXTROSE 50% WATER 50ML SYRINGE IV PRN (22:30)
[2019-06-13] MEDS ORDERED: POTASSIUM CHLORIDE 20MEQ TABLET SR PO NR (00:30)
[2019-06-13] MEDS: VANCOMYCIN 750 MG PREMIX 150 ML IV NR ×2 (00:45→03:03)
[2019-06-13] MEDS ORDERED: PIPERACILLIN/TAZ 3.375G PREMIX 50 ML IV NR (00:45)
[2019-06-13] MEDS: PIPERACILLIN/TAZOBACTAM 3.375 G in DEXTROSE 5% WATER 50 ML IV SCH ×3 (06:00→21:32)
[2019-06-13] MEDS ORDERED: PIPERACILLIN/TAZOBACTAM 3.375 G in DEXT 5% WATER 100 ML IV SCH (06:30)
[2019-06-13] MEDS: HEPARIN 5000 UNITS/ML VIAL SUBCUT SCH ×2 (09:00→21:33)
[2019-06-13] MEDS ORDERED: SODIUM CHLORIDE 0.9% 1,000 ML IV SCH (11:30)
[2019-06-13 12:30] VITALS: BP 132/80
[2019-06-13] MEDS ORDERED: MAGNESIUM 2 G PREMIX 50 ML IV SCH (14:00)
[2019-06-13] MEDS ORDERED: ALEN70TA3 MT (16:00)
[2019-06-13 16:13] LABS: BASOPHILS % 0.2 % (0.0-2.0); EOSINOPHILS % 0.1 % (0.0-5.0); HEMATOCRIT. 35.4 % (36.0-48.0); HEMOGLOBIN. 11.7 g/dL (12.0-16.0); LYMPHOCYTES % 7.2 % (20.0-50.0); MEAN CORPUSCULAR HEMOGLOBIN 31.7 pg (28.0-32.0); MONOCYTES % 4.6 % (2.0-8.0); NEUTROPHILS % 87.9 % (40.0-76.0); PLATELET 302 x1000/uL (130-400); RED BLOOD CELL COUNT 3.69 mill/uL (4.2-5.4); RED CELL DISTRIBUTION WIDTH 14.9 % (11.6-14.6)
[2019-06-13 16:25] LABS: CHLORIDE 109 mEq/L (98-107)
[2019-06-13] MEDS: BLOOD SUGAR DIAGNOSTIC STRIP TEST SCH ×2 (17:40→21:30)
[2019-06-13] MEDS: VANCOMYCIN 500 MG PREMIX 100 ML IV SCH (18:43)
[2019-06-13] MEDS: INSULIN LISPRO 100 UNITS/ML SUBCUT SCH (21:34)
[2019-06-14] MEDS: PIPERACILLIN/TAZOBACTAM 3.375 G in DEXTROSE 5% WATER 50 ML IV SCH ×3 (00:16→16:26)
[2019-06-14 04:00] VITALS: BP 105/63
[2019-06-14] MEDS: VANCOMYCIN 500 MG PREMIX 100 ML IV SCH ×2 (04:19→17:42)
[2019-06-14] MEDS: BLOOD SUGAR DIAGNOSTIC STRIP TEST SCH ×4 (06:15→20:42)
[2019-06-14 08:00] VITALS: BP 112/61
[2019-06-14] MEDS: INSULIN LISPRO 100 UNITS/ML SUBCUT SCH ×4 (08:06→20:42)
[2019-06-14] MEDS: HEPARIN 5000 UNITS/ML VIAL SUBCUT SCH ×2 (10:20→20:43)
[2019-06-14 16:32] LABS: HEMATOCRIT 32.8 % (36.0-48.0); HEMOGLOBIN 10.7 g/dL (12.0-16.0); MEAN CORPUSCULAR HEMOGLOBIN 31.4 pg (28.0-32.0); PLATELET 285 x1000/uL (130-400); RED BLOOD CELL COUNT 3.42 mill/uL (4.2-5.4); RED CELL DISTRIBUTION WIDTH 14.6 % (11.6-14.6)
[2019-06-14 17:11] LABS: CHLORIDE 102 mEq/L (98-107)
[2019-06-14 20:00] VITALS: BP 112/61
[2019-06-15] VITALS: BP 110/60
[2019-06-15] MEDS: PIPERACILLIN/TAZOBACTAM 3.375 G in DEXT 5% WATER 100 ML IV SCH ×2 (02:01→05:32)
[2019-06-15 04:00] VITALS: BP 127/70
[2019-06-15] MEDS: VANCOMYCIN 500 MG PREMIX 100 ML IV SCH (04:15)
[2019-06-15 07:11] LABS: CHLORIDE 104 mEq/L (98-107)
[2019-06-15] MEDS: INSULIN LISPRO 100 UNITS/ML SUBCUT SCH (07:33)
[2019-06-15] MEDS: BLOOD SUGAR DIAGNOSTIC STRIP TEST SCH (07:33)
[2019-06-15 08:00] VITALS: BP 126/96
[2019-06-15] MEDS: HEPARIN 5000 UNITS/ML VIAL SUBCUT SCH (10:41)
[2019-06-15 12:00] VITALS: BP 118/71
[2019-06-15] MEDS ORDERED: DOXYCYCLINE 100 MG in DEXT 5% WATER 100 ML IV SCH (12:00)
[2019-06-15 13:37] LABS: HEMATOCRIT. 35.1 % (36.0-48.0); HEMOGLOBIN. 11.8 g/dL (12.0-16.0); MEAN CORPUSCULAR HEMOGLOBIN 32.2 pg (28.0-32.0); MEAN CORPUSCULAR VOLUME 95.7 fL (81.0-99.0); MEAN PLATELET VOLUME 7.9 fl (7.4-10.4); PLATELET 303 x1000/uL (130-400); RED BLOOD CELL COUNT 3.67 mill/uL (4.2-5.4); RED CELL DISTRIBUTION WIDTH 14.6 % (11.6-14.6)
[2019-06-15 15:07] VITALS: BP 118/71
[2019-06-15 16:00] LABS: ATYPICAL LYMPHOCYTES 2; PLATELET ESTIMATE NORMAL
== END 2019-06-15 16:17 | DRG 871 ==
LOC: ER 17:57 → 7WST 21:09 → EDBEDREQ 21:14 → EDBEDREQTM 21:14 → ENRESERV 06-13 11:06
PROVIDERS: ADMIT Internal Medicine; ATTEND Internal Medicine
DX: A41.9 Sepsis, unspecified organism (principal); J96.01 Acute respiratory failure with hypoxia; J18.9 Pneumonia, unspecified organism; E46 Unspecified protein-calorie malnutrition; Z68.1 Body mass index [BMI] 19.9 or less, adult; J44.0 Chronic obstructive pulmonary disease with (acute) lower respiratory infection; J44.1 Chronic obstructive pulmonary disease with (acute) exacerbation; J98.11 Atelectasis; E83.42 Hypomagnesemia; Z96.641 Presence of right artificial hip joint; R73.9 Hyperglycemia, unspecified; E87.6 Hypokalemia; Z96.649 Presence of unspecified artificial hip joint; D64.9 Anemia, unspecified; R26.9 Unspecified abnormalities of gait and mobility; M81.0 Age-related osteoporosis without current pathological fracture; T38.0X5A Adverse effect of glucocorticoids and synthetic analogues, initial encounter; Z79.83 Long term (current) use of bisphosphonates; Z87.81 Personal history of (healed) traumatic fracture; Z88.6 Allergy status to analgesic agent; Z88.8 Allergy status to other drugs, medicaments and biological substances; Z91.040 Latex allergy status; Z88.5 Allergy status to narcotic agent
CPT/HCPCS: 36415; 71045; 80048; 80053; 80202; 82962; 83036; 83735; 83880; 84484; 85025; 85027; 93005; 94640; 97162; 99285; J1644; J1815; J2543; J2930; J3370; J3475; J3490; J7060

== ENCOUNTER 2019-06-15 16:16 | Inpatient (IN) | payer MEDICARE, MEDICAID ==
[~2019-06-15] VITALS: Ht 162.6 cm; Wt 56.3 kg
[~2019-06-15 16:16] MED LIST changes: +ALEN70TA3 MT; -ALEN70TA48 PO; -DIPH25CA83 PO; -FLUT1DIS3 IH; -GABA-531 PO; -MISO200T4 PO; -OMEP20CA10 PO; -PROC5TAB12 PO; -ZOLP5TAB8 PO
[2019-06-15 16:20] VITALS: BP 130/70
[2019-06-15] MEDS ORDERED: ONDANSETRON 4MG ODT PO PRN (17:00)
[2019-06-15 20:00] VITALS: BP 132/77
[2019-06-15] MEDS: HEPARIN 5000 UNITS/ML VIAL SUBCUT SCH (22:27)
[2019-06-16] MEDS: DOXYCYCLINE 100 MG in DEXT 5% WATER 100 ML IV SCH ×3 (00:56→21:37)
[2019-06-16 08:00] VITALS: BP 113/56
[2019-06-16 08:02] LABS: HEMATOCRIT. 35.1 % (36.0-48.0); MEAN CORPUSCULAR HEMOGLOBIN 32.5 pg (28.0-32.0); MEAN CORPUSCULAR VOLUME 95.1 fL (81.0-99.0); MEAN PLATELET VOLUME 8.6 fl (7.4-10.4); PLATELET 292 x1000/uL (130-400); RED BLOOD CELL COUNT 3.69 mill/uL (4.2-5.4); RED CELL DISTRIBUTION WIDTH 14.3 % (11.6-14.6)
[2019-06-16 09:13] LABS: CHLORIDE 103 mEq/L (98-107)
[2019-06-16] MEDS: HEPARIN 5000 UNITS/ML VIAL SUBCUT SCH ×2 (12:21→21:35)
[2019-06-16 16:56] LABS: PLATELET ESTIMATE NORMAL
[2019-06-16] MEDS: DOCUSATE SODIUM 100MG CAPSULE PO SCH (17:00)
[2019-06-16 20:00] VITALS: BP 110/70
[2019-06-16] MEDS: POLYETHYLENE GLYCOL 3350 (17GM) 1 DOSE PACK PO SCH ×2 (21:00→21:34)
[2019-06-16] MEDS: FAMOTIDINE 20MG TABLET PO SCH (21:35)
[2019-06-17 08:00] VITALS: BP 117/58
[2019-06-17] MEDS: TRAMADOL 50MG TABLET PO PRN (08:51)
[2019-06-17] MEDS: HEPARIN 5000 UNITS/ML VIAL SUBCUT SCH ×2 (08:51→21:30)
[2019-06-17] MEDS: DOXYCYCLINE 100 MG in DEXT 5% WATER 100 ML IV SCH ×2 (08:51→21:30)
[2019-06-17] MEDS: DOCUSATE SODIUM 100MG CAPSULE PO SCH ×2 (08:55→16:19)
[2019-06-17 20:00] VITALS: BP 114/68
[2019-06-17] MEDS: POLYETHYLENE GLYCOL 3350 (17GM) 1 DOSE PACK PO SCH (21:29)
[2019-06-17] MEDS: FAMOTIDINE 20MG TABLET PO SCH (21:30)
[2019-06-18] MEDS: IPRATROPIUM/ALBUTEROL 0.5-3(2.5)MG/3ML NEB HHN PRN (01:41)
[2019-06-18 06:59] LABS: HEMATOCRIT. 35.5 % (36.0-48.0); HEMOGLOBIN. 11.8 g/dL (12.0-16.0); MEAN CORPUSCULAR HEMOGLOBIN 31.8 pg (28.0-32.0); MEAN CORPUSCULAR VOLUME 95.8 fL (81.0-99.0); MEAN PLATELET VOLUME 7.9 fl (7.4-10.4); PLATELET 327 x1000/uL (130-400); RED BLOOD CELL COUNT 3.71 mill/uL (4.2-5.4); RED CELL DISTRIBUTION WIDTH 14.6 % (11.6-14.6)
[2019-06-18 07:01] LABS: CHLORIDE 102 mEq/L (98-107)
[2019-06-18 07:14] LABS: FOLIC ACID (FOLATE) SERUM 6.3 ng/mL (>5.38)
[2019-06-18 07:19] LABS: PHOSPHORUS 3.4 mg/dL (2.5-4.9)
[2019-06-18 07:20] LABS: TOTAL IRON BINDING CAPACITY 238 ug/dL (250-450)
[2019-06-18] MEDS: HEPARIN 5000 UNITS/ML VIAL SUBCUT SCH ×2 (09:00→21:13)
[2019-06-18] MEDS: DOXYCYCLINE 100 MG in DEXT 5% WATER 100 ML IV SCH ×2 (09:00→21:13)
[2019-06-18] MEDS: DOCUSATE SODIUM 100MG CAPSULE PO SCH ×2 (09:00→16:52)
[2019-06-18 09:14] VITALS: BP 97/52
[2019-06-18] MEDS: TRAMADOL 50MG TABLET PO PRN (09:14)
[2019-06-18] MEDS: GUAIFENESIN 200MG/10ML SUGAR FREE UDC PO PRN (09:29)
[2019-06-18 14:12] LABS: PLATELET ESTIMATE NORMAL
[2019-06-18] MEDS ORDERED: MAGNESIUM 2 G PREMIX 50 ML IV NR (17:00)
[2019-06-18] MEDS ORDERED: LACTULOSE 20G/30ML UDC PO NR (17:45)
[2019-06-18 20:00] VITALS: BP 121/53
[2019-06-18] MEDS: POLYETHYLENE GLYCOL 3350 (17GM) 1 DOSE PACK PO SCH (21:00)
[2019-06-18] MEDS: FAMOTIDINE 20MG TABLET PO SCH (21:13)
[2019-06-19] MEDS: GUAIFENESIN 200MG/10ML SUGAR FREE UDC PO PRN (00:32)
[2019-06-19] MEDS: TRAMADOL 50MG TABLET PO PRN (06:15)
[2019-06-19 08:01] VITALS: BP 108/53
[2019-06-19] MEDS: DOCUSATE SODIUM 100MG CAPSULE PO SCH ×2 (08:25→16:04)
[2019-06-19] MEDS: HEPARIN 5000 UNITS/ML VIAL SUBCUT SCH ×2 (08:25→21:16)
[2019-06-19] MEDS: DOXYCYCLINE 100 MG in DEXT 5% WATER 100 ML IV SCH (08:31)
[2019-06-19] MEDS: DOXYCYCLINE HYCLATE 100MG CAPSULE PO SCH ×2 (11:12→21:16)
[2019-06-19] MEDS ORDERED: NA PHOS,M-B/NA PHOS,DI-BA ENEMA 118ML PR NR (15:15)
[2019-06-19] MEDS: LACTULOSE 20G/30ML UDC PO SCH ×3 (16:00→21:18)
[2019-06-19 20:00] VITALS: BP 107/62
[2019-06-19] MEDS: POLYETHYLENE GLYCOL 3350 (17GM) 1 DOSE PACK PO SCH (21:00)
[2019-06-19] MEDS: FAMOTIDINE 20MG TABLET PO SCH (21:15)
[2019-06-19] MEDS: ZOLPIDEM TARTRATE 5MG TABLET PO PRN (21:15)
[2019-06-20] MEDS: LACTULOSE 20G/30ML UDC PO SCH
[2019-06-20 06:53] LABS: HEMATOCRIT. 32.4 % (36.0-48.0); HEMOGLOBIN. 10.7 g/dL (12.0-16.0); MEAN CORPUSCULAR HEMOGLOBIN 31.6 pg (28.0-32.0); MEAN PLATELET VOLUME 7.5 fl (7.4-10.4); PLATELET 292 x1000/uL (130-400); RED BLOOD CELL COUNT 3.38 mill/uL (4.2-5.4); RED CELL DISTRIBUTION WIDTH 14.8 % (11.6-14.6)
[2019-06-20 08:00] VITALS: BP 116/54
[2019-06-20 08:00] LABS: CHLORIDE 103 mEq/L (98-107)
[2019-06-20 08:06] LABS: PHOSPHORUS 3.4 mg/dL (2.5-4.9)
[2019-06-20 08:23] VITALS: BP 116/54
[2019-06-20] MEDS: DOXYCYCLINE HYCLATE 100MG CAPSULE PO SCH ×2 (09:08→21:44)
[2019-06-20] MEDS: DOCUSATE SODIUM 100MG CAPSULE PO SCH ×2 (09:08→17:49)
[2019-06-20] MEDS: HEPARIN 5000 UNITS/ML VIAL SUBCUT SCH ×2 (09:09→21:46)
[2019-06-20] MEDS: MAGNESIUM OXIDE 400MG TABLET PO SCH (17:49)
[2019-06-20 17:55] LABS: PLATELET ESTIMATE NORMAL
[2019-06-20 20:00] VITALS: BP 93/49
[2019-06-20] MEDS: POLYETHYLENE GLYCOL 3350 (17GM) 1 DOSE PACK PO SCH (21:00)
[2019-06-20] MEDS: ZOLPIDEM TARTRATE 5MG TABLET PO PRN (21:44)
[2019-06-20] MEDS: FAMOTIDINE 20MG TABLET PO SCH (21:44)
[2019-06-21] MEDS: MAGNESIUM OXIDE 400MG TABLET PO SCH ×2 (06:19→17:15)
[2019-06-21 08:00] VITALS: BP 120/72
[2019-06-21] MEDS: DOCUSATE SODIUM 100MG CAPSULE PO SCH ×2 (09:13→17:00)
[2019-06-21] MEDS: DOXYCYCLINE HYCLATE 100MG CAPSULE PO SCH ×2 (09:13→20:26)
[2019-06-21] MEDS: HEPARIN 5000 UNITS/ML VIAL SUBCUT SCH ×2 (09:14→20:27)
[2019-06-21 20:00] VITALS: BP 105/42
[2019-06-21] MEDS: FAMOTIDINE 20MG TABLET PO SCH (20:26)
[2019-06-21] MEDS: POLYETHYLENE GLYCOL 3350 (17GM) 1 DOSE PACK PO SCH (21:00)
[2019-06-22] MEDS: ZOLPIDEM TARTRATE 5MG TABLET PO PRN (00:09)
[2019-06-22 04:08] LABS: 25-HYDROXY VITAMIN D3 36 ng/mL (.)
[2019-06-22] MEDS: MAGNESIUM OXIDE 400MG TABLET PO SCH ×3 (06:37→16:21)
[2019-06-22 07:42] VITALS: BP 109/61
[2019-06-22 08:04] LABS: CHLORIDE 100 mEq/L (98-107)
[2019-06-22 08:19] LABS: HEMATOCRIT. 34.1 % (36.0-48.0); HEMOGLOBIN. 11.3 g/dL (12.0-16.0); MEAN CORPUSCULAR HEMOGLOBIN 31.9 pg (28.0-32.0); MEAN CORPUSCULAR VOLUME 95.9 fL (81.0-99.0); MEAN PLATELET VOLUME 7.6 fl (7.4-10.4); PLATELET 297 x1000/uL (130-400); RED BLOOD CELL COUNT 3.55 mill/uL (4.2-5.4); RED CELL DISTRIBUTION WIDTH 14.9 % (11.6-14.6)
[2019-06-22] MEDS: DOCUSATE SODIUM 100MG CAPSULE PO SCH ×2 (08:40→16:21)
[2019-06-22] MEDS: HEPARIN 5000 UNITS/ML VIAL SUBCUT SCH ×2 (08:41→20:56)
[2019-06-22] MEDS: DOXYCYCLINE HYCLATE 100MG CAPSULE PO SCH (08:41)
[2019-06-22] MEDS ORDERED: MAGNESIUM 2 G PREMIX 50 ML IV SCH (13:00)
[2019-06-22] MEDS ORDERED: ERGOCALCIFEROL 50000UNITS CAPSULE PO SCH (15:00)
[2019-06-22 20:00] VITALS: BP 111/53
[2019-06-22] MEDS: POLYETHYLENE GLYCOL 3350 (17GM) 1 DOSE PACK PO SCH (20:56)
[2019-06-22] MEDS: FAMOTIDINE 20MG TABLET PO SCH (20:57)
[2019-06-22 21:09] LABS: ATYPICAL LYMPHOCYTES 1
[2019-06-22 21:12] LABS: PLATELET ESTIMATE NORMAL
[2019-06-23 08:00] VITALS: BP 116/61
[2019-06-23 08:01] LABS: CHLORIDE 104 mEq/L (98-107)
[2019-06-23] MEDS: DOCUSATE SODIUM 100MG CAPSULE PO SCH ×2 (08:26→16:14)
[2019-06-23] MEDS: MAGNESIUM OXIDE 400MG TABLET PO SCH ×2 (08:29→16:14)
[2019-06-23] MEDS: HEPARIN 5000 UNITS/ML VIAL SUBCUT SCH ×2 (08:29→21:19)
[2019-06-23] MEDS: GUAIFENESIN 200MG/10ML SUGAR FREE UDC PO PRN ×2 (15:23→21:19)
[2019-06-23] MEDS: IPRATROPIUM/ALBUTEROL 0.5-3(2.5)MG/3ML NEB HHN PRN (16:17)
[2019-06-23 20:00] VITALS: BP 91/55
[2019-06-23] MEDS: FAMOTIDINE 20MG TABLET PO SCH (21:19)
[2019-06-23] MEDS: POLYETHYLENE GLYCOL 3350 (17GM) 1 DOSE PACK PO SCH (21:19)
[2019-06-23] MEDS: ZOLPIDEM TARTRATE 5MG TABLET PO PRN (22:13)
[2019-06-24 08:00] VITALS: BP 107/49
[2019-06-24] MEDS: HEPARIN 5000 UNITS/ML VIAL SUBCUT SCH ×2 (08:25→21:14)
[2019-06-24] MEDS: GUAIFENESIN 200MG/10ML SUGAR FREE UDC PO PRN (08:25)
[2019-06-24] MEDS: DOCUSATE SODIUM 100MG CAPSULE PO SCH ×2 (08:25→16:46)
[2019-06-24] MEDS: MAGNESIUM OXIDE 400MG TABLET PO SCH ×2 (08:25→16:46)
[2019-06-24 20:00] VITALS: BP 108/59
[2019-06-24] MEDS: GUAIFENESIN 600MG ER TABLET PO SCH (20:44)
[2019-06-24] MEDS: FAMOTIDINE 20MG TABLET PO SCH (20:44)
[2019-06-24] MEDS: POLYETHYLENE GLYCOL 3350 (17GM) 1 DOSE PACK PO SCH (20:49)
[2019-06-24] MEDS ORDERED: ZOLPIDEM TARTRATE 5MG TABLET PO PRN (21:15)
[2019-06-25] MEDS: IPRATROPIUM/ALBUTEROL 0.5-3(2.5)MG/3ML NEB HHN PRN ×2 (04:18→21:47)
[2019-06-25 07:00] VITALS: BP 125/59
[2019-06-25 07:11] LABS: HEMATOCRIT. 33.6 % (36.0-48.0); HEMOGLOBIN. 11.2 g/dL (12.0-16.0); MEAN CORPUSCULAR HEMOGLOBIN 32.3 pg (28.0-32.0); MEAN CORPUSCULAR VOLUME 96.7 fL (81.0-99.0); MEAN PLATELET VOLUME 7.8 fl (7.4-10.4); PLATELET 310 x1000/uL (130-400); RED BLOOD CELL COUNT 3.48 mill/uL (4.2-5.4); RED CELL DISTRIBUTION WIDTH 15.3 % (11.6-14.6)
[2019-06-25 07:27] LABS: CHLORIDE 101 mEq/L (98-107)
[2019-06-25 07:35] LABS: PHOSPHORUS 3.5 mg/dL (2.5-4.9)
[2019-06-25] MEDS: DOCUSATE SODIUM 100MG CAPSULE PO SCH ×2 (08:17→16:54)
[2019-06-25] MEDS: GUAIFENESIN 600MG ER TABLET PO SCH ×2 (08:17→20:49)
[2019-06-25] MEDS: MAGNESIUM OXIDE 400MG TABLET PO SCH ×2 (08:17→16:54)
[2019-06-25] MEDS: HEPARIN 5000 UNITS/ML VIAL SUBCUT SCH ×2 (08:18→20:50)
[2019-06-25] MEDS ORDERED: DEXTL PO (13:42)
[2019-06-25] MEDS ORDERED: DOCU-150 PO (13:42)
[2019-06-25] MEDS ORDERED: FAMO20TA8 PO (13:42)
[2019-06-25 13:43] LABS: PLATELET ESTIMATE NORMAL
[2019-06-25] MEDS ORDERED: MAGN400T29 MT (13:48)
[2019-06-25] MEDS ORDERED: ERGO2000 MT (13:48)
[2019-06-25 20:00] VITALS: BP 105/60
[2019-06-25] MEDS: FAMOTIDINE 20MG TABLET PO SCH (20:49)
[2019-06-25] MEDS: POLYETHYLENE GLYCOL 3350 (17GM) 1 DOSE PACK PO SCH (20:49)
[2019-06-26 08:00] VITALS: BP 104/50
[2019-06-26] MEDS: MAGNESIUM OXIDE 400MG TABLET PO SCH (08:33)
[2019-06-26] MEDS: GUAIFENESIN 600MG ER TABLET PO SCH (08:33)
[2019-06-26] MEDS: HEPARIN 5000 UNITS/ML VIAL SUBCUT SCH (08:34)
[2019-06-26] MEDS: DOCUSATE SODIUM 100MG CAPSULE PO SCH (08:36)
[2019-06-26] MEDS ORDERED: IPRA3AMP9 HHN (10:18)
[2019-06-26 13:24] VITALS: BP 104/50
[2019-06-26] MEDS: IPRATROPIUM/ALBUTEROL 0.5-3(2.5)MG/3ML NEB HHN PRN (15:57)
[2019-06-27] MEDS ORDERED: FLUT1BLS INH (07:42)
[2019-06-27] MEDS ORDERED: TIOT18CA3 INH (07:42)
[2019-06-27] MEDS ORDERED: ALBU90AE INH (07:42)
[2019-06-27] MEDS ORDERED: IPRA3AMP9 HHN (09:31)
== END 2019-06-26 17:13 | disposition home health service (06) | DRG 947 ==
PROVIDERS: ADMIT Physical Medicine & Rehabilitation Spinal Cord Injury Medicine; ATTEND Internal Medicine
DX: R53.81 Other malaise (principal); A41.9 Sepsis, unspecified organism; J18.9 Pneumonia, unspecified organism; E46 Unspecified protein-calorie malnutrition; J44.0 Chronic obstructive pulmonary disease with (acute) lower respiratory infection; J44.1 Chronic obstructive pulmonary disease with (acute) exacerbation; J98.11 Atelectasis; D64.9 Anemia, unspecified; E87.6 Hypokalemia; K59.00 Constipation, unspecified; M81.0 Age-related osteoporosis without current pathological fracture; Z87.01 Personal history of pneumonia (recurrent); Z96.641 Presence of right artificial hip joint
CPT/HCPCS: 36415; 71045; 80048; 80053; 82306; 82607; 82728; 82746; 83540; 83550; 83735; 84100; 84134; 84443; 85025; 92523; 92610; 93970; 94618; 94640; 97110; 97116; 97163; 97166; 97530; 97535; J1644; J3475; J3490; J7060

== ENCOUNTER 2021-08-11 17:16 | Inpatient (IN) | payer MEDICARE, MEDICAID ==
[~2021-08-11] VITALS: Ht 162.6 cm; Wt 72.6 kg
[~2021-08-11 17:16] MED LIST changes: +ALBU05 NEB; +AZIT250T12 MT; +D-ME473S50; +DEXTL MT; +DOCU-150 PO; +ERGO2000 MT; +FAMO20TA8 PO; +FLUT1BLS INH; +IBUP-2030 PO; +IPRA3AMP9 HHN; +MAGN400T29 MT; +P20 PO; +P50 PO; +TIOT18CA3 INH; +XLV MT
[2021-08-11] MEDS ORDERED: ALBUTEROL (0.083%) 2.5MG/3ML NEB HHN STA ×2 (18:03→21:16)
[2021-08-11] MEDS ORDERED: METHYLPREDNISOLONE SOD SUCC 125 MG/2 ML VIAL IV STA (18:03)
[2021-08-11 18:27] LABS: BASOPHILS % 0.6 % (0.0-2.0); EOSINOPHILS % 1.8 % (0.0-5.0); HEMATOCRIT. 32.4 % (36.0-48.0); HEMOGLOBIN. 10.8 g/dL (12.0-16.0); LYMPHOCYTES % 13.1 % (20.0-50.0); MEAN CORPUSCULAR HEMOGLOBIN 32.5 pg (28.0-32.0); MEAN CORPUSCULAR VOLUME 97.6 fL (81.0-99.0); MEAN PLATELET VOLUME 6.9 fl (7.4-10.4); NEUTROPHILS % 75.5 % (40.0-76.0); PLATELET 277 x1000/uL (130-400); RED BLOOD CELL COUNT 3.32 mill/uL (4.2-5.4); RED CELL DISTRIBUTION WIDTH 15.5 % (11.6-14.6)
[2021-08-11 18:39] LABS: CHLORIDE 103 mEq/L (98-107)
[2021-08-11] MEDS ORDERED: IPRATROPIUM BROMIDE (0.02%) 0.5MG/2.5ML NEB HHN STA (21:16)
[2021-08-12] MEDS ORDERED: ONDANSETRON HCL 4MG/2ML INJ IV PRN ×2 (03:45→09:30)
[2021-08-12] MEDS ORDERED: DOCUSATE SODIUM 100MG CAPSULE PO PRN (03:45)
[2021-08-12] MEDS ORDERED: IPRATROPIUM/ALBUTEROL 0.5-3(2.5)MG/3ML NEB HHN PRN ×2 (03:45→09:30)
[2021-08-12] MEDS ORDERED: CLONIDINE 0.1MG TABLET PO PRN ×2 (03:45→09:30)
[2021-08-12] MEDS ORDERED: AMLODIPINE 10MG TABLET PO SCH (04:00)
[2021-08-12] MEDS ORDERED: METHYLPREDNISOLONE SOD SUCC 125 MG/2 ML VIAL IV SCH ×2 (04:00→14:00)
[2021-08-12] MEDS: IPRATROPIUM/ALBUTEROL 0.5-3(2.5)MG/3ML NEB HHN SCH (07:50)
[2021-08-12] MEDS ORDERED: ENOXAPARIN 40MG/0.4ML SYR SUBCUT SCH (09:00)
[2021-08-12] MEDS ORDERED: MAGNESIUM HYDROXIDE 400MG/5ML 30ML UDC PO PRN (09:30)
[2021-08-12] MEDS ORDERED: IPRATROPIUM/ALBUTEROL 0.5-3(2.5)MG/3ML NEB HHN SCH (09:30)
[2021-08-12] MEDS ORDERED: MAGNESIUM/ALUMINUM HYDROXIDE/SIMETHICONE 30ML UDC PO PRN (09:30)
[2021-08-12] MEDS ORDERED: IBUPROFEN 800MG TABLET PO PRN (09:30)
[2021-08-12] MEDS ORDERED: DIPHENHYDRAMINE 50MG/ML VIAL IV PRN (09:30)
[2021-08-12] MEDS ORDERED: ACETAMINOPHEN 325MG TABLET PO PRN (09:30)
[2021-08-12 10:00] VITALS: BP 151/78
[2021-08-12] MEDS: METHYLPREDNISOLONE SOD SUCC 40 MG/ML VIAL IV SCH ×2 (10:52→20:46)
[2021-08-12] MEDS: ENOXAPARIN 40MG/0.4ML SYR SUBCUT SCH (10:52)
[2021-08-12] MEDS: ACETAMINOPHEN 325MG TABLET PO PRN ×2 (10:53→17:26)
[2021-08-12 11:07] VITALS: BP 151/78
[2021-08-12 12:00] VITALS: BP 132/66
[2021-08-12] MEDS ORDERED: CYANOCOBALAMIN 1000MCG/ML VIAL IM NR (13:00)
[2021-08-12 16:00] VITALS: BP 136/63
[2021-08-12] MEDS: DOCUSATE SODIUM 100MG CAPSULE PO SCH (16:03)
[2021-08-12] MEDS: SODIUM CHLORIDE 0.9% INJ 3ML FLUSH IVF SCH ×2 (16:08→21:18)
[2021-08-12 20:00] VITALS: BP 132/67
[2021-08-12] MEDS: ZOLPIDEM TARTRATE 5MG TABLET PO PRN (21:19)
[2021-08-12] MEDS: GUAIFENESIN 200MG/10ML SUGAR FREE UDC PO PRN (22:04)
[2021-08-12] MEDS: AMLODIPINE 2.5MG TABLET PO SCH (22:04)
[2021-08-12] MEDS: OMEPRAZOLE 20MG CAPSULE EXTENDED RELEASE PO SCH (22:04)
[2021-08-13] VITALS: BP 152/75
[2021-08-13] MEDS: METHYLPREDNISOLONE SOD SUCC 40 MG/ML VIAL IV SCH ×2 (02:32→10:31)
[2021-08-13 04:00] VITALS: BP 125/66
[2021-08-13] MEDS: SODIUM CHLORIDE 0.9% INJ 3ML FLUSH IVF SCH ×3 (05:59→21:53)
[2021-08-13] MEDS: OMEPRAZOLE 20MG CAPSULE EXTENDED RELEASE PO SCH ×2 (06:01→21:53)
[2021-08-13 07:35] LABS: HEMATOCRIT. 32.5 % (36.0-48.0); HEMOGLOBIN. 10.8 g/dL (12.0-16.0); MEAN CORPUSCULAR HEMOGLOBIN 32.6 pg (28.0-32.0); MEAN PLATELET VOLUME 7.1 fl (7.4-10.4); PLATELET 322 x1000/uL (130-400); RED BLOOD CELL COUNT 3.31 mill/uL (4.2-5.4); RED CELL DISTRIBUTION WIDTH 15.6 % (11.6-14.6)
[2021-08-13 07:41] LABS: CHLORIDE 103 mEq/L (98-107)
[2021-08-13 07:54] LABS: LDL CHOLESTEROL 90 mg/dL (5-100)
[2021-08-13 07:55] LABS: HDL CHOLESTEROL 100 mg/dL (40-59)
[2021-08-13 08:00] VITALS: BP 130/69
[2021-08-13] MEDS: IPRATROPIUM/ALBUTEROL 0.5-3(2.5)MG/3ML NEB HHN SCH ×3 (08:14→20:42)
[2021-08-13] MEDS: DOCUSATE SODIUM 100MG CAPSULE PO SCH ×2 (09:00→17:00)
[2021-08-13] MEDS: AMLODIPINE 2.5MG TABLET PO SCH ×2 (10:33→21:53)
[2021-08-13] MEDS: ENOXAPARIN 40MG/0.4ML SYR SUBCUT SCH (10:33)
[2021-08-13] MEDS: LIDOCAINE 5% PATCH TOP SCH (10:34)
[2021-08-13 12:00] VITALS: BP 137/76
[2021-08-13 16:00] VITALS: BP 119/58
[2021-08-13 16:17] LABS: PLATELET ESTIMATE NORMAL
[2021-08-13] MEDS: PREDNISONE 20MG TABLET PO SCH (17:41)
[2021-08-13 20:00] VITALS: BP 141/71
[2021-08-13] MEDS ORDERED: BUDESONIDE 0.5MG/2ML NEB HHN SCH (21:00)
[2021-08-13] MEDS: ZOLPIDEM TARTRATE 5MG TABLET PO PRN (21:53)
[2021-08-14] VITALS: BP 107/59
[2021-08-14] MEDS: IPRATROPIUM/ALBUTEROL 0.5-3(2.5)MG/3ML NEB HHN SCH ×3 (02:17→13:15)
[2021-08-14 04:00] VITALS: BP 153/66
[2021-08-14] MEDS: SODIUM CHLORIDE 0.9% INJ 3ML FLUSH IVF SCH ×2 (06:07→14:00)
[2021-08-14] MEDS: OMEPRAZOLE 20MG CAPSULE EXTENDED RELEASE PO SCH (06:08)
[2021-08-14] MEDS: PREDNISONE 20MG TABLET PO SCH ×2 (06:10→17:22)
[2021-08-14 08:00] VITALS: BP 146/68
[2021-08-14] MEDS: DOCUSATE SODIUM 100MG CAPSULE PO SCH ×2 (09:00→17:00)
[2021-08-14] MEDS: ENOXAPARIN 40MG/0.4ML SYR SUBCUT SCH (10:12)
[2021-08-14] MEDS: LIDOCAINE 5% PATCH TOP SCH (10:12)
[2021-08-14] MEDS: AMLODIPINE 2.5MG TABLET PO SCH (11:16)
[2021-08-14 12:00] VITALS: BP 136/77
[2021-08-14 15:14] VITALS: BP 129/57
[2021-08-14 16:00] VITALS: BP 129/57
[2021-08-14] MEDS ORDERED: ALENDRONATE SODIUM 35MG TABLET PO SCH (16:00)
[2021-08-14] MEDS: GUAIFENESIN 200MG/10ML SUGAR FREE UDC PO PRN (17:22)
== END 2021-08-14 19:04 | disposition home or self-care (01) | DRG 189 ==
LOC: ER 17:16 → MICUSO 22:56 → 7EST 08-12 10:27
PROVIDERS: ADMIT Internal Medicine; ATTEND Internal Medicine
DX: J96.01 Acute respiratory failure with hypoxia (principal); J44.1 Chronic obstructive pulmonary disease with (acute) exacerbation; M81.0 Age-related osteoporosis without current pathological fracture; G89.29 Other chronic pain; M54.9 Dorsalgia, unspecified; Z96.641 Presence of right artificial hip joint; E53.8 Deficiency of other specified B group vitamins; D64.9 Anemia, unspecified; M19.90 Unspecified osteoarthritis, unspecified site; Z88.8 Allergy status to other drugs, medicaments and biological substances; Z88.6 Allergy status to analgesic agent; Z91.040 Latex allergy status; Z79.899 Other long term (current) drug therapy; Z82.49 Family history of ischemic heart disease and other diseases of the circulatory system
CPT/HCPCS: 36415; 71045; 80053; 80061; 83880; 84484; 85025; 85027; 93005; 93970; 94640; 97162; 99285; J1650; J2920; J2930; J3420; J7512; J7626

== ENCOUNTER 2021-10-04 22:00 | Inpatient (IN) | payer MEDICARE, MEDICAID ==
[~2021-10-04] VITALS: Ht 170.2 cm; Wt 69.9 kg
[2021-10-04] MEDS ORDERED: METHYLPREDNISOLONE SOD SUCC 125 MG/2 ML VIAL IV ONE (22:30)
[2021-10-04] MEDS ORDERED: ALBUTEROL (0.083%) 2.5MG/3ML NEB HHN ONE (22:30)
[2021-10-04 23:03] LABS: BASOPHILS % 0.4 % (0.0-2.0); EOSINOPHILS % 4.7 % (0.0-5.0); HEMATOCRIT. 39.6 % (36.0-48.0); LYMPHOCYTES % 13.6 % (20.0-50.0); MEAN CORPUSCULAR HEMOGLOBIN 31.6 pg (28.0-32.0); MEAN PLATELET VOLUME 7.1 fl (7.4-10.4); NEUTROPHILS % 74.3 % (40.0-76.0); PLATELET 308 x1000/uL (130-400); RED BLOOD CELL COUNT 4.12 mill/uL (4.2-5.4); RED CELL DISTRIBUTION WIDTH 14.5 % (11.6-14.6)
[2021-10-04 23:12] LABS: CHLORIDE 103 mEq/L (98-107)
[2021-10-05] VITALS (11 sets, daily range): BP systolic 105–157; BP diastolic 58–90
[2021-10-05 00:23] LABS: BG BASE EXCESS 1.8 mmol/L (-2.0-2.0); BG CARBOXYHEMOGLOBIN 0.8 % (0.5-1.5); BG DEOXYHEMOGLOBIN 0.3 % (0.0-5.0); BG FRACTION INSPIRED OXYGEN 100; BG METHEMOGLOBIN 0.3 % (0.0-1.5); BG OXYGEN SATURATION 99.7 % (92.0-98.5); BG OXYHEMOGLOBIN 98.6 % (94.0-97.0); BG PH 7.296 (7.350-7.450); BG PO2 269.9 mmHg (75.0-100.0); BG SAMPLE SITE RIGHT RADIAL; BG TOTAL HEMOGLOBIN 14.4 g/dL (12.0-18.0); BG VENT MODE MASK - NRB
[2021-10-05] MEDS ORDERED: ALBUTEROL (0.083%) 2.5MG/3ML NEB HHN SCH (01:05)
[2021-10-05] MEDS ORDERED: ASPIRIN 81MG TABLET PO SCH (01:15)
[2021-10-05] MEDS ORDERED: ACETAMINOPHEN 325MG TABLET PO PRN (06:00)
[2021-10-05] MEDS ORDERED: ZOLPIDEM TARTRATE 5MG TABLET PO PRN (06:00)
[2021-10-05] MEDS: METHYLPREDNISOLONE SOD SUCC 40 MG/ML VIAL IV SCH ×3 (07:18→20:47)
[2021-10-05 07:29] LABS: CLARITY URINE CLEAR (CLEAR); COLOR URINE YELLOW (YELLOW); KETONES URINE 1+ (NEGATIVE); LEUKOCYTE ESTERASE URINE 2+ (NEGATIVE); NITRITE URINE NEGATIVE (NEGATIVE); OCCULT BLOOD URINE 1+ (NEGATIVE); PROTEIN URINE TRACE (NEGATIVE); SPECIFIC GRAVITY URINE 1.019 (1.005-1.030)
[2021-10-05] MEDS: IPRATROPIUM/ALBUTEROL 0.5-3(2.5)MG/3ML NEB HHN SCH ×3 (07:45→21:15)
[2021-10-05] MEDS: DOCUSATE SODIUM 100MG CAPSULE PO SCH (08:06)
[2021-10-05] MEDS: OMEPRAZOLE 20MG CAPSULE EXTENDED RELEASE PO SCH ×2 (08:06→20:47)
[2021-10-06] VITALS (12 sets, daily range): BP systolic 100–138; BP diastolic 52–73
[2021-10-06] MEDS ORDERED: VANCOMYCIN 1500MG in DEXTROSE 5% WATER 250ML IV NR ×2
[2021-10-06] MEDS: IPRATROPIUM/ALBUTEROL 0.5-3(2.5)MG/3ML NEB HHN SCH ×4 (01:30→20:09)
[2021-10-06] MEDS: METHYLPREDNISOLONE SOD SUCC 40 MG/ML VIAL IV SCH ×3 (06:10→22:11)
[2021-10-06] MEDS: OMEPRAZOLE 20MG CAPSULE EXTENDED RELEASE PO SCH ×2 (06:10→20:41)
[2021-10-06] MEDS: DOCUSATE SODIUM 100MG CAPSULE PO SCH (09:01)
[2021-10-06] MEDS ORDERED: MAGNESIUM HYDROXIDE 400MG/5ML 30ML UDC PO PRN (15:30)
[2021-10-06] MEDS ORDERED: BISACODYL 10MG SUPP PR PRN (15:30)
[2021-10-06] MEDS ORDERED: IPRATROPIUM/ALBUTEROL 0.5-3(2.5)MG/3ML NEB HHN PRN (16:15)
[2021-10-06] MEDS ORDERED: VANCOMYCIN 1GM PMX (XELLIA) 200 ML IV SCH (21:00)
[2021-10-06] MEDS ORDERED: VANCOMYCIN 1.25GM PMX (XELLIA) 250 ML IV SCH (21:00)
[2021-10-07] VITALS (12 sets, daily range): BP systolic 110–131; BP diastolic 53–72
[2021-10-07] MEDS: IPRATROPIUM/ALBUTEROL 0.5-3(2.5)MG/3ML NEB HHN SCH ×4 (01:33→21:00)
[2021-10-07] MEDS: METHYLPREDNISOLONE SOD SUCC 40 MG/ML VIAL IV SCH ×3 (05:29→21:44)
[2021-10-07 06:04] LABS: CHLORIDE 101 mEq/L (98-107)
[2021-10-07] MEDS: DOCUSATE SODIUM 100MG CAPSULE PO SCH (08:32)
[2021-10-07] MEDS: FAMOTIDINE 20MG TABLET PO SCH (08:32)
[2021-10-07] MEDS ORDERED: DOCUSATE SODIUM 100MG CAPSULE PO SCH (09:00)
[2021-10-08] VITALS (12 sets, daily range): BP systolic 114–153; BP diastolic 49–92
[2021-10-08] MEDS: IPRATROPIUM/ALBUTEROL 0.5-3(2.5)MG/3ML NEB HHN SCH ×4 (02:19→20:40)
[2021-10-08] MEDS: METHYLPREDNISOLONE SOD SUCC 40 MG/ML VIAL IV SCH ×3 (06:08→22:07)
[2021-10-08] MEDS: FAMOTIDINE 20MG TABLET PO SCH (09:42)
[2021-10-08] MEDS: DOCUSATE SODIUM 100MG CAPSULE PO SCH (09:42)
[2021-10-09] VITALS (12 sets, daily range): BP systolic 138–161; BP diastolic 62–81
[2021-10-09] MEDS: IPRATROPIUM/ALBUTEROL 0.5-3(2.5)MG/3ML NEB HHN SCH ×4 (02:09→21:08)
[2021-10-09] MEDS: METHYLPREDNISOLONE SOD SUCC 40 MG/ML VIAL IV SCH ×3 (06:37→22:01)
[2021-10-09] MEDS: DOCUSATE SODIUM 100MG CAPSULE PO SCH (08:10)
[2021-10-09] MEDS: FAMOTIDINE 20MG TABLET PO SCH (08:10)
[2021-10-10] VITALS (12 sets, daily range): BP systolic 112–150; BP diastolic 62–80
[2021-10-10] MEDS: IPRATROPIUM/ALBUTEROL 0.5-3(2.5)MG/3ML NEB HHN SCH ×4 (02:50→21:54)
[2021-10-10] MEDS: METHYLPREDNISOLONE SOD SUCC 40 MG/ML VIAL IV SCH ×2 (05:59→20:43)
[2021-10-10] MEDS: FAMOTIDINE 20MG TABLET PO SCH (09:42)
[2021-10-10] MEDS: DOCUSATE SODIUM 100MG CAPSULE PO SCH (09:43)
[2021-10-11] VITALS (12 sets, daily range): BP systolic 103–165; BP diastolic 61–78
[2021-10-11] MEDS: IPRATROPIUM/ALBUTEROL 0.5-3(2.5)MG/3ML NEB HHN SCH ×4 (02:46→20:59)
[2021-10-11] MEDS: METHYLPREDNISOLONE SOD SUCC 40 MG/ML VIAL IV SCH (09:00)
[2021-10-11] MEDS: FAMOTIDINE 20MG TABLET PO SCH (09:00)
[2021-10-11] MEDS: DOCUSATE SODIUM 100MG CAPSULE PO SCH (09:00)
[2021-10-12] VITALS (12 sets, daily range): BP systolic 113–138; BP diastolic 54–75
[2021-10-12] MEDS: IPRATROPIUM/ALBUTEROL 0.5-3(2.5)MG/3ML NEB HHN SCH ×4 (02:52→20:02)
[2021-10-12] MEDS: PREDNISONE 20MG TABLET PO SCH (08:38)
[2021-10-12] MEDS: DOCUSATE SODIUM 100MG CAPSULE PO SCH (08:38)
[2021-10-12] MEDS: FAMOTIDINE 20MG TABLET PO SCH (08:38)
[2021-10-13] VITALS (12 sets, daily range): BP systolic 108–163; BP diastolic 45–99
[2021-10-13] MEDS: IPRATROPIUM/ALBUTEROL 0.5-3(2.5)MG/3ML NEB HHN SCH ×3 (02:02→13:55)
[2021-10-13] MEDS: DOCUSATE SODIUM 100MG CAPSULE PO SCH (08:43)
[2021-10-13] MEDS: FAMOTIDINE 20MG TABLET PO SCH (08:43)
[2021-10-13] MEDS: PREDNISONE 20MG TABLET PO SCH (08:43)
[2021-10-14] VITALS (11 sets, daily range): BP systolic 97–133; BP diastolic 53–69
[2021-10-14] MEDS: IPRATROPIUM/ALBUTEROL 0.5-3(2.5)MG/3ML NEB HHN SCH ×4 (01:41→20:24)
[2021-10-14] MEDS: FAMOTIDINE 20MG TABLET PO SCH (08:43)
[2021-10-14] MEDS: PREDNISONE 20MG TABLET PO SCH (08:44)
[2021-10-14] MEDS: DOCUSATE SODIUM 100MG CAPSULE PO SCH (08:44)
[2021-10-15] VITALS: BP 116/59
[2021-10-15] MEDS: IPRATROPIUM/ALBUTEROL 0.5-3(2.5)MG/3ML NEB HHN SCH ×4 (02:00→21:42)
[2021-10-15 04:00] VITALS: BP 112/63
[2021-10-15 08:00] VITALS: BP 109/64
[2021-10-15] MEDS ORDERED: PREDNISONE 20MG TABLET PO SCH (08:00)
[2021-10-15] MEDS: FAMOTIDINE 20MG TABLET PO SCH (08:57)
[2021-10-15] MEDS: DOCUSATE SODIUM 100MG CAPSULE PO SCH (08:58)
[2021-10-15 12:00] VITALS: BP 111/70
[2021-10-15 16:00] VITALS: BP 119/60
[2021-10-15 20:00] VITALS: BP 109/58
[2021-10-16] VITALS: BP 113/59
[2021-10-16] MEDS: IPRATROPIUM/ALBUTEROL 0.5-3(2.5)MG/3ML NEB HHN SCH ×2 (02:48→08:55)
[2021-10-16 04:00] VITALS: BP 122/51
[2021-10-16] MEDS ORDERED: PREDNISONE 10MG TABLET PO SCH (07:50)
[2021-10-16 08:00] VITALS: BP 110/55
[2021-10-16] MEDS: DOCUSATE SODIUM 100MG CAPSULE PO SCH (09:07)
[2021-10-16] MEDS: FAMOTIDINE 20MG TABLET PO SCH (09:07)
[2021-10-16 11:37] LABS: HEMATOCRIT 38.2 % (36.0-48.0); HEMOGLOBIN 12.4 g/dL (12.0-16.0); MEAN CORPUSCULAR HEMOGLOBIN 30.7 pg (28.0-32.0); MEAN CORPUSCULAR VOLUME 94.7 fL (81.0-99.0); PLATELET 299 x1000/uL (130-400); RED BLOOD CELL COUNT 4.04 mill/uL (4.2-5.4); RED CELL DISTRIBUTION WIDTH 14.3 % (11.6-14.6)
[2021-10-16 11:54] LABS: CHLORIDE 97 mEq/L (98-107)
[2021-10-16 12:00] VITALS: BP 102/60
[2021-10-16 13:23] VITALS: BP 102/60
== END 2021-10-16 15:00 | DRG 190 ==
LOC: ER 22:00 → 5EST 10-05 01:07 → ENRESERV 10-05 01:52 → 5EST 10-14 16:56 → 6WST 10-15 17:39
PROVIDERS: ADMIT Internal Medicine; ATTEND Internal Medicine
PROC: 5A09357 Assistance with Respiratory Ventilation, Less than 24 Consecutive Hours, Continuous Positive Airway Pressure (ICD-10-PCS; principal; 2021-10-05)
PROC: 5A09357 Assistance with Respiratory Ventilation, Less than 24 Consecutive Hours, Continuous Positive Airway Pressure (ICD-10-PCS; 2021-10-06)
PROC: 5A09457 Assistance with Respiratory Ventilation, 24-96 Consecutive Hours, Continuous Positive Airway Pressure (ICD-10-PCS; 2021-10-07)
PROC: 5A09357 Assistance with Respiratory Ventilation, Less than 24 Consecutive Hours, Continuous Positive Airway Pressure (ICD-10-PCS; 2021-10-08)
DX: J44.1 Chronic obstructive pulmonary disease with (acute) exacerbation (principal); J96.01 Acute respiratory failure with hypoxia; J96.02 Acute respiratory failure with hypercapnia; I10 Essential (primary) hypertension; M19.90 Unspecified osteoarthritis, unspecified site; G89.29 Other chronic pain; M54.9 Dorsalgia, unspecified; Z20.822 Contact with and (suspected) exposure to COVID-19; Z96.641 Presence of right artificial hip joint; Z99.81 Dependence on supplemental oxygen; Z88.8 Allergy status to other drugs, medicaments and biological substances; Z91.040 Latex allergy status; Z79.2 Long term (current) use of antibiotics; Z79.899 Other long term (current) drug therapy; Z87.81 Personal history of (healed) traumatic fracture; M81.0 Age-related osteoporosis without current pathological fracture
CPT/HCPCS: 36415; 36600; 71045; 80048; 80053; 81003; 82375; 82805; 83605; 83880; 84145; 84484; 85025; 85027; 87426; 87804; 93005; 94640; 94660; 97110; 97116; 97162; 97530; 99291; C9803; J2920; J2930; J3370; J7060; J7512